=== PATIENT | female | born 1955 | race Caucasian/White ===

== ENCOUNTER 2016-12-08 10:24 | Emergency (ER) | payer BC, OTHER ==
[2016-12-08 10:35] VITALS: BP 111/83
[2016-12-08] MEDS ORDERED: Acetaminophen/HYDROcodone 325-5 MG Tab PO ONE (11:18)
--- NOTE | 2016-12-08 11:24 | EDM.PDOC ---
ED HPI GENERAL MEDICAL PROBLEM - General Chief Complaint: Upper Extremity Injury/Pain Stated Complaint: FELL THINKS SHE BROKE HER COLLARBONE/LT ARM Time Seen by Provider: 12/08/16 10:50 Source of Information: Reports: Patient History Limitations: Reports: No Limitations - History of Present Illness INITIAL COMMENTS - FREE TEXT/NARRATIVE: Patient presents to ER with complaints of left shoulder/clavicle pain. Did slip and fall down her stairs at home. Has currently been dealing with right shoulder concerns due to previous fracture and was "trying to protect that area ". Now having limited range of motion with the left shoulder as well. Has noted an obvious deformity and some bruising. Onset: Today, Sudden Duration: Minutes: Location: Reports: Upper Extremity, Left Quality: Reports: Throbbing Severity: Moderate Worsens with: Reports: Movement Context: Reports: Trauma (fall) Associated Symptoms: Reports: No Other Symptoms Left Clavicle Pain Score (Numeric/FACES): 6 Left Shoulder Pain Score (Numeric/FACES): 6 - Related Data Allergies Allergy/AdvReac Type Severity Reaction Status Date / Time aspirin Allergy Other Verified 12/08/16 10:35 Home Meds: Home Meds Albuterol [Proventil HFA] 6.7 gm INH BID PRN 04/28/16 [History] Albuterol [Proventil Neb Soln] 1.25 mg NEB BID 04/28/16 [History] Budesonide/Formoterol Fumarate [Symbicort 160-4.5 Mcg Inhaler] 1 puff IH ASDIRECTED PRN 04/28/16 [History] Venlafaxine HCl [Venlafaxine HCl] 150 mg PO BID 04/28/16 [History] rOPINIRole HCl [Ropinirole HCl] 3 tab PO DAILY 04/28/16 [History] Past Medical History Respiratory History: Reports: COPD [employer] History: Reports: Endometriosis Musculoskeletal History: Reports: Other (See Below) Other Musculoskeletal History: surgery to RUE after fx Psychiatric History: Reports: Anxiety, Depression - Past Surgical History Female Surgical History: Reports: Hysterectomy Social & Family History - Tobacco Use Smoking Status *Q: Current Every Day Smoker Years of Tobacco use: 42 Packs/Tins Daily: 0.2 - Caffeine Use Caffeine Use: Reports: Coffee - Recreational Drug Use Recreational Drug Use: No Review of Systems - Review of Systems Review Of Systems: ROS reveals no pertinent complaints other than HPI. ED EXAM, GENERAL - Physical Exam Exam: See Below Exam Limited By: No Limitations General Appearance: Alert, WD/WN, Mild Distress Extremities: Arm Pain, Limited Range of Motion, Other (patient noted to have obvious deformity to medial clavicle. Is tender to this area. Mild bruising. Limited range of motion to left shoulder due to pain.) Course - Vital Signs Last Recorded V/S: Last Vital Signs Temp 97 F 12/08/16 10:29 Pulse 70 12/08/16 10:29 Resp 20 12/08/16 10:29 BP 111/83 12/08/16 10:29 Pulse Ox 95 12/08/16 10:29 - Orders/Labs/Meds Orders: Active Orders 24 hr Category Date Time Status Shoulder Comp Lt [CR] Stat Exams 12/08/16 10:36 Taken Meds: Medications Discontinued Medications Generic Name Dose Route Start Last Admin Trade Name Freq PRN Reason Stop Dose Admin Hydrocodone Bitart/Acetaminophen 2 tab 12/08/16 11:18 12/08/16 11:21 [place] 325-5 Mg PO 12/08/16 11:19 2 tab ONETIME ONE Administration - Re-Assessments/Exams Free Text/Narrative Re-Assessment/Exam: 12/08 Xrays reviewed. Does have a nondisplaced clavicle fracture. Sling applied. Departure - Departure Time of Disposition: 11:21 Disposition: Home, Self-Care 01 Condition: Fair Clinical Impression: Fracture of clavicle Qualifiers: Encounter type: initial encounter Fracture type: closed Fracture alignment: nondisplaced Laterality: left - Discharge Information Referrals: Otilio Dias PA-C [Family Provider] - Forms: ED Department Discharge Additional Instructions: 1. Ice to affected area frequently today 2. Sling 3. [place] 5/325 1-2 tabs every 6 hours as needed for pain 4. Follow up in 2 weeks for recheck and xray. Discuss Dexa scan at that time. 5. Contact us with any concerns. - My Orders Last 24 Hours: My Active Orders 12/08/16 10:36 Shoulder Comp Lt [CR] Stat - Assessment/Plan Last 24 Hours: My Active Orders 12/08/16 10:36 Shoulder Comp Lt [CR] Stat
== END 2016-12-08 11:35 | disposition home or self-care (01) ==
LOC: CC.ED 10:24
DX: S42.002A Fracture of unspecified part of left clavicle, initial encounter for closed fracture (principal); J44.9 Chronic obstructive pulmonary disease, unspecified; F41.9 Anxiety disorder, unspecified; F32.9 Major depressive disorder, single episode, unspecified; F17.210 Nicotine dependence, cigarettes, uncomplicated; Z88.8 Allergy status to other drugs, medicaments and biological substances; Z79.899 Other long term (current) drug therapy; W10.9XXA Fall (on) (from) unspecified stairs and steps, initial encounter; Y92.009 Unspecified place in unspecified non-institutional (private) residence as the place of occurrence of the external cause
CPT/HCPCS: 73030; 99283; A9270

== ENCOUNTER 2017-02-21 12:22 | Inpatient (IN) | payer BC ==
[2017-02-21 12:54] LABS: CHLORIDE,CL 100 mEq/L (98-106); SODIUM,NA 135 mEq/L (136-145)
[2017-02-21] MEDS ORDERED: Ibuprofen 200 MG Tab PO PRN (13:53)
[2017-02-21] MEDS ORDERED: Docusate Sodium 100 MG Cap PO PRN (13:53)
[2017-02-21] MEDS ORDERED: Acetaminophen 325 MG Tab PO PRN (13:53)
[2017-02-21] MEDS ORDERED: Temazepam 15 MG Cap PO PRN (13:53)
[2017-02-21] MEDS ORDERED: Lactated Ringers 1,000 ML IV SCH (14:00)
[2017-02-21] MEDS ORDERED: Nicotine 14 MG/24 Hr Patch TRDERM SCH (14:15)
[2017-02-21] MEDS ORDERED: Albuterol 8 GM Inhaler INH PRN (14:20)
[2017-02-21] MEDS ORDERED: Formoterol/Mometasone 200-5 MCG 8.8 GM Inhaler IH PRN (14:20)
[2017-02-21] MEDS ORDERED: rOPINIRole 1 MG Tab PO PRN (14:20)
[2017-02-21] MEDS ORDERED: Acetaminophen 500 MG Tab PO PRN (14:20)
[2017-02-21] MEDS: Levofloxacin/Dextrose 5%-Water 500 MG in Premix Bag 1 BAG IV SCH (14:24)
[2017-02-21] MEDS: methylPREDNISolone Sodium Succinate 125 MG/2 ML SDV IVPUSH SCH ×2 (14:24→22:20)
[2017-02-21] MEDS: Enoxaparin 40 MG/0.4 ML Syringe SUBCUT SCH (14:24)
[2017-02-21] MEDS ORDERED: Iopamidol 755 Mg/ML 100 ML Bottle IVPUSH ONE (15:18)
[2017-02-21] MEDS: Albuterol/Ipratropium 3.0-0.5 MG/3 ML Neb Soln NEB PRN ×2 (16:41→19:48)
[2017-02-21] MEDS: Venlafaxine 37.5 MG Tab PO SCH (19:40)
[2017-02-22] MEDS ORDERED: Acetaminophen/HYDROcodone 325-5 MG Tab PO SCH (08:00)
[2017-02-22] MEDS: Albuterol/Ipratropium 3.0-0.5 MG/3 ML Neb Soln NEB PRN (08:07)
[2017-02-22] MEDS: Venlafaxine 37.5 MG Tab PO SCH ×2 (08:07→19:28)
[2017-02-22] MEDS: Cyanocobalamin (Vitamin B12) 1,000 MCG Tab PO SCH (08:08)
[2017-02-22] MEDS: methylPREDNISolone Sodium Succinate 125 MG/2 ML SDV IVPUSH SCH ×2 (08:09→19:28)
--- NOTE | 2017-02-22 08:59 | PCM.PN ---
- General Info Date of Service: 02/22/17 Admission Dx/Problem (Free Text): RLL Pneumonia Functional Status: Reports: Pain Controlled, Tolerating Diet. Denies: Ambulating - Review of Systems General: Reports: Fever, Fatigue, Malaise. Denies: Weakness HEENT: Reports: No Symptoms Pulmonary: Reports: Shortness of Breath, Cough, Sputum. Denies: Wheezing Cardiovascular: Denies: Chest Pain, Edema, Lightheadedness Gastrointestinal: Denies: Abdominal Pain, Constipation, Diarrhea, Nausea, Vomiting Genitourinary: Reports: No Symptoms Musculoskeletal: Reports: No Symptoms Skin: Reports: No Symptoms Neurological: Reports: No Symptoms - Patient Data Vitals - Most Recent: Last Vital Signs Temp 98.3 F 02/22/17 04:00 Pulse 98 02/22/17 04:00 Resp 16 02/22/17 04:00 BP 110/62 02/22/17 04:00 Pulse Ox 99 02/22/17 04:00 Weight - Most Recent: 113 lb 9.6 oz Lab Results Last 24 Hours: Laboratory Results - last 24 hr 02/21/17 02/21/17 02/21/17 Range/Units 12:34 12:34 12:34 WBC 18.6 H (5.0-10.0) 10^3/uL RBC 4.14 (4.00-5.50) 10^6/uL Hgb 12.1 (12.0-16.0) g/dL Hct 37.6 (37.0-47.0) % MCV 90.8 (82.0-94.0) fL MCH 29.2 (27.0-32.0) pg MCHC 32.2 L (33.0-38.0) g/dL RDW Coeff of Michelle 12.5 (11.0-15.0) % Plt Count 404 H (150-400) 10^3/uL Neut % (Auto) 80.9 (35-85) % Lymph % (Auto) 10.1 (10-55) % [place] % (Auto) 7.8 (0-16) % Eos % (Auto) 1.0 (0-5) % Baso % (Auto) 0.2 (0-3) % Neut # (Auto) 15.07 H (1.80-7.00) 10^3/uL Lymph # (Auto) 1.88 (1.00-4.80) 10^3/uL [place] # (Auto) 1.46 H (0.00-0.80) 10^3/uL Eos # (Auto) 0.19 (0.00-0.45) 10^3/uL Baso # (Auto) 0.04 10^3/uL D-Dimer, Quantitative (0.00-0.50) Sodium 135 L (136-145) mEq/L Potassium 3.5 D (3.5-5.0) mEq/L Chloride 100 (98-106) mEq/L Carbon Dioxide 24 (21-32) mmol/L BUN 10 (7-18) mg/dL Creatinine 0.9 (0.6-1.0) mg/dL Est Cr Clr Drug Dosing TNP Estimated GFR (MDRD) > 60 (>=60) mL/min Glucose 128 H D (75-99) mg/dL Calcium 8.8 (8.4-10.1) mg/dL Total Bilirubin 0.3 (0.0-1.0) mg/dL AST 23 (15-37) U/L ALT 36 (12-78) U/L Alkaline Phosphatase 131 H (46-116) U/L C-Reactive Protein 21.7 H (0.2-0.8) mg/dL Total Protein 7.6 (6.4-8.2) g/dL Albumin 3.2 L (3.4-5.0) g/dL Urine Color Yellow (YELLOW) Urine Appearance Clear (CLEAR) Urine pH 5.5 (4.5-8.0) Ur Specific [place] 1.020 (1.003-1.020) Urine Protein 30 H (NEGATIVE) mg/dL Urine Glucose (UA) Negative (NEGATIVE) mg/dL Urine Ketones Negative (NEGATIVE) mg/dL Urine Occult Blood Small H (NEGATIVE) Urine Nitrite Negative (NEGATIVE) Urine Bilirubin Negative (NEGATIVE) Urine Urobilinogen 0.2 (0.2-1.0) EU/dL Ur Leukocyte Esterase Negative (NEGATIVE) Urine RBC Not seen (0-5) /HPF Urine WBC Not seen (0-5) /HPF Ur Squamous Epith Cells Moderate H (NOT SEEN) /HPF Urine Bacteria Few H (NOT SEEN) /HPF 02/21/17 02/22/17 02/22/17 Range/Units 14:26 05:11 08:13 WBC 18.0 H (5.0-10.0) 10^3/uL RBC 3.93 L (4.00-5.50) 10^6/uL Hgb 11.5 L (12.0-16.0) g/dL Hct 35.5 L (37.0-47.0) % MCV 90.3 (82.0-94.0) fL MCH 29.3 (27.0-32.0) pg MCHC 32.4 L (33.0-38.0) g/dL RDW Coeff of Michelle 12.2 (11.0-15.0) % Plt Count 439 H (150-400) 10^3/uL Neut % (Auto) 88.5 H (35-85) % Lymph % (Auto) 8.2 L (10-55) % [place] % (Auto) 3.2 (0-16) % Eos % (Auto) 0 (0-5) % Baso % (Auto) 0.1 (0-3) % Neut # (Auto) 15.93 H (1.80-7.00) 10^3/uL Lymph # (Auto) 1.47 (1.00-4.80) 10^3/uL [place] # (Auto) 0.57 (0.00-0.80) 10^3/uL Eos # (Auto) 0.00 (0.00-0.45) 10^3/uL Baso # (Auto) 0.01 10^3/uL D-Dimer, Quantitative 1.42 H (0.00-0.50) Sodium (136-145) mEq/L Potassium (3.5-5.0) mEq/L Chloride (98-106) mEq/L Carbon Dioxide 27 (21-32) mmol/L BUN 10 (7-18) mg/dL Creatinine 0.7 (0.6-1.0) mg/dL Est Cr Clr Drug Dosing 65.30 Estimated GFR (MDRD) > 60 (>=60) mL/min Glucose 137 H (75-99) mg/dL Calcium 8.9 (8.4-10.1) mg/dL Total Bilirubin (0.0-1.0) mg/dL AST (15-37) U/L ALT (12-78) U/L Alkaline Phosphatase (46-116) U/L C-Reactive Protein 17.3 H (0.2-0.8) mg/dL Total Protein (6.4-8.2) g/dL Albumin (3.4-5.0) g/dL Urine Color (YELLOW) Urine Appearance (CLEAR) Urine pH (4.5-8.0) Ur Specific [place] (1.003-1.020) Urine Protein (NEGATIVE) mg/dL Urine Glucose (UA) (NEGATIVE) mg/dL Urine Ketones (NEGATIVE) mg/dL Urine Occult Blood (NEGATIVE) Urine Nitrite (NEGATIVE) Urine Bilirubin (NEGATIVE) Urine Urobilinogen (0.2-1.0) EU/dL Ur Leukocyte Esterase (NEGATIVE) Urine RBC (0-5) /HPF Urine WBC (0-5) /HPF Ur Squamous Epith Cells (NOT SEEN) /HPF Urine Bacteria (NOT SEEN) /HPF Matthew Results Last 24 Hours: Microbiology 02/21/17 12:34 Influenza Type A Antigen Screen - Final Nasal, Left NEGATIVE INFLUENZA A VIRUS AG Influenza Type B Antigen Screen - Final NEGATIVE INFLUENZA B VIRUS AG Med Orders - Current: Current Medications Acetaminophen (Tylenol Extra Strength) 1,000 mg PO Q8H PRN PRN Reason: Pain (Mild 1-3)/fever Last Admin: 02/22/17 08:17 Dose: 1,000 mg Hydrocodone Bitart/Acetaminophen ([place] 325-5 Mg) 1 tab PO DAILY [facility] Last Admin: 02/22/17 08:08 Dose: Not Given Albuterol (Ventolin Hfa) 0 gm INH Q4H PRN PRN Reason: Shortness of Breath Albuterol/Ipratropium (Duoneb 3.0-0.5 Mg/3 Ml) 3 ml NEB QID [facility] Cyanocobalamin (Vitamin B12) 1,000 mcg PO DAILY [facility] Last Admin: 02/22/17 08:08 Dose: 1,000 mcg Docusate Sodium (Colace) 100 mg PO BID PRN PRN Reason: Constipation Enoxaparin Sodium (Lovenox) 40 mg SUBCUT Q24H [facility] Last Admin: 02/21/17 14:24 Dose: 40 mg Levofloxacin/Dextrose 500 mg/ (Premix) 100 mls @ 100 mls/hr IV Q24H [facility] Last Admin: 02/21/17 14:24 Dose: 100 mls/hr Methylprednisolone Sodium Succinate (Solu-Medrol) 62.5 mg IVPUSH Q12H [facility] Last Admin: 02/22/17 08:09 Dose: 62.5 mg Mometasone Furoate/Formoterol Fumar (Dulera 200-5 Mcg) 1 puff IH BID PRN PRN Reason: Shortness of Breath Last Admin: 02/21/17 19:43 Dose: 1 puff Ropinirole HCl (Requip) 1 - 3 mg PO TID PRN PRN Reason: Spasms Last Admin: 02/21/17 14:37 Dose: 2 mg Temazepam (Restoril) 15 mg PO BEDTIME PRN PRN Reason: Sleep Venlafaxine HCl (Effexor) 112.5 mg PO BID [facility] Last Admin: 02/22/17 08:07 Dose: 112.5 mg Discontinued Medications Acetaminophen (Tylenol) 650 mg PO Q4H PRN PRN Reason: Pain (Mild 1-3)/fever Albuterol/Ipratropium (Duoneb 3.0-0.5 Mg/3 Ml) 3 ml NEB Q4H PRN PRN Reason: Shortness Of Breath/wheezing Last Admin: 02/22/17 08:07 Dose: 3 ml Lactated Ringer's (Ringers, Lactated) 1,000 mls @ 100 mls/hr IV ASDIRECTED [facility] Iopamidol (Isovue-370 (76%)) 100 ml IVPUSH ONETIME ONE Stop: 02/21/17 15:19 Last Admin: 02/21/17 19:10 Dose: Not Given Methylprednisolone Sodium Succinate (Solu-Medrol) 62.5 mg IVPUSH 1400,2300 [facility] Stop: 02/21/17 23:59 Last Admin: 02/21/17 22:20 Dose: 62.5 mg Nicotine (Habitrol) 14 mg TRDERM DAILY [facility] - Exam General: Alert, Oriented HEENT: Mucous Membr. Moist/[place] Neck: Supple Lungs: Decreased Breath Sounds, Rales (RLL) Cardiovascular: Regular Rate, Regular Rhythm GI/Abdominal Exam: Normal Bowel Sounds, Soft, Non-Tender Extremities: Normal Inspection, No Pedal Edema Skin: Warm, Dry Neurological: No New Focal Deficit - Problem List & Annotations (1) Pneumonia SNOMED Code(s): 282195415 Code(s): J18.9 - PNEUMONIA, UNSPECIFIED ORGANISM Status: Acute Priority: High Current Visit: Yes Qualifiers: Pneumonia type: due to unspecified organism Laterality: right Lung location: lower lobe of lung Qualified Code(s): J18.1 - Lobar pneumonia, unspecified organism - Problem List Review Problem List Initiated/Reviewed/Updated: Yes - My Orders Last 24 Hours: My Active Orders 02/22/17 12:00 Albuterol/Ipratropium [DuoNeb 3.0-0.5 MG/3 ML] 3 ml NEB QID - Assessment Assessment:: RLL Pneumonia - Plan Plan:: Patient states feels somewhat better today. Chest still feels tight but not to the extreme of yesterday. She did expectorate a sputum last night so awaiting those results. Low grade fever last evening. Good appetite. WBC today 18. CRP 17.3, both slightly improved from yesterday. CT did confirm a RLL pneumonia , no PE. Will continue with IV Levaquin. DuoNebs QID scheduled and PRN. Await sputum culture. Encourage ambulation when able.
[2017-02-22 09:13] LABS: CHLORIDE,CL 103 mEq/L (98-106); SODIUM,NA 138 mEq/L (136-145)
[2017-02-22] MEDS: Enoxaparin 40 MG/0.4 ML Syringe SUBCUT SCH (12:07)
[2017-02-22] MEDS: Albuterol/Ipratropium 3.0-0.5 MG/3 ML Neb Soln NEB SCH ×3 (12:08→19:28)
[2017-02-22] MEDS: Levofloxacin/Dextrose 5%-Water 500 MG in Premix Bag 1 BAG IV SCH (12:08)
[2017-02-23 07:22] LABS: CHLORIDE,CL 105 mEq/L (98-106); SODIUM,NA 140 mEq/L (136-145)
[2017-02-23] MEDS: Venlafaxine 37.5 MG Tab PO SCH ×2 (07:38→19:24)
[2017-02-23] MEDS: Albuterol/Ipratropium 3.0-0.5 MG/3 ML Neb Soln NEB SCH ×4 (07:38→20:21)
[2017-02-23] MEDS: methylPREDNISolone Sodium Succinate 125 MG/2 ML SDV IVPUSH SCH ×2 (07:38→19:24)
[2017-02-23] MEDS: Cyanocobalamin (Vitamin B12) 1,000 MCG Tab PO SCH (07:38)
[2017-02-23] MEDS: Levofloxacin/Dextrose 5%-Water 500 MG in Premix Bag 1 BAG IV SCH (12:21)
[2017-02-23] MEDS: Enoxaparin 40 MG/0.4 ML Syringe SUBCUT SCH (12:21)
--- NOTE | 2017-02-23 13:30 | PCM.PN ---
- General Info Date of Service: 02/23/17 Admission Dx/Problem (Free Text): RLL Pneumonia Functional Status: Reports: Pain Controlled, Tolerating Diet, Ambulating - Review of Systems General: Denies: Fever, Weakness, Fatigue HEENT: Denies: Ear Pain, Sinus Congestion, Sore Throat Pulmonary: Reports: Shortness of Breath, Cough, Sputum, Wheezing Cardiovascular: Denies: Chest Pain, Edema, Lightheadedness Gastrointestinal: Denies: Abdominal Pain, Nausea, Vomiting Genitourinary: Reports: No Symptoms Musculoskeletal: Reports: No Symptoms Skin: Reports: No Symptoms Neurological: Reports: No Symptoms - Patient Data Vitals - Most Recent: Last Vital Signs Temp 97.8 F 02/23/17 08:00 Pulse 86 02/23/17 08:00 Resp 20 02/23/17 08:00 BP 109/63 02/23/17 08:00 Pulse Ox 96 02/23/17 08:00 Weight - Most Recent: 113 lb 9.6 oz Lab Results Last 24 Hours: Laboratory Results - last 24 hr 02/23/17 02/23/17 Range/Units 06:45 06:45 WBC 23.2 H* (5.0-10.0) 10^3/uL RBC 3.72 L (4.00-5.50) 10^6/uL Hgb 11.0 L (12.0-16.0) g/dL Hct 33.6 L (37.0-47.0) % MCV 90.3 (82.0-94.0) fL MCH 29.6 (27.0-32.0) pg MCHC 32.7 L (33.0-38.0) g/dL RDW Coeff of Michelle 12.5 (11.0-15.0) % Plt Count 486 H (150-400) 10^3/uL Add Manual Diff Yes Neutrophils % (Manual) 84 (35-85) % Lymphocytes % (Manual) 12 L (21-55) % Monocytes % (Manual) 4 (2-12) % Absolute Neutrophils 19.49 H (1.80-7.00) 10^3/uL Lymphocytes # (Manual) 2.78 (1.00-4.80) 10^3/uL Monocytes # (Manual) 0.93 H (0.00-0.80) 10^3/uL Sodium 140 (136-145) mEq/L Potassium 3.7 (3.5-5.0) mEq/L Chloride 105 (98-106) mEq/L Carbon Dioxide 26 (21-32) mmol/L BUN 11 (7-18) mg/dL Creatinine 0.8 (0.6-1.0) mg/dL Est Cr Clr Drug Dosing 57.14 mL/min Estimated GFR (MDRD) > 60 (>=60) mL/min Glucose 115 H (75-99) mg/dL Calcium 8.8 (8.4-10.1) mg/dL C-Reactive Protein 6.8 H (0.2-0.8) mg/dL Matthew Results Last 24 Hours: Microbiology 02/21/17 19:00 Gram Stain - Final Sputum - Expectorated Sputum Culture - Preliminary 02/21/17 14:26 Aerobic Blood Culture - Preliminary Blood NO GROWTH AFTER 1 DAY Anaerobic Blood Culture - Preliminary NO GROWTH AFTER 1 DAY 02/21/17 14:11 Aerobic Blood Culture - Preliminary Blood NO GROWTH AFTER 1 DAY Anaerobic Blood Culture - Preliminary NO GROWTH AFTER 1 DAY Med Orders - Current: Current Medications Acetaminophen (Tylenol Extra Strength) 1,000 mg PO Q8H PRN PRN Reason: Pain (Mild 1-3)/fever Last Admin: 02/22/17 08:17 Dose: 1,000 mg Albuterol (Ventolin Hfa) 0 gm INH Q4H PRN PRN Reason: Shortness of Breath Albuterol/Ipratropium (Duoneb 3.0-0.5 Mg/3 Ml) 3 ml NEB QID [facility] Last Admin: 02/23/17 12:21 Dose: 3 ml Cyanocobalamin (Vitamin B12) 1,000 mcg PO DAILY [facility] Last Admin: 02/23/17 07:38 Dose: 1,000 mcg Docusate Sodium (Colace) 100 mg PO BID PRN PRN Reason: Constipation Enoxaparin Sodium (Lovenox) 40 mg SUBCUT Q24H [facility] Last Admin: 02/23/17 12:21 Dose: 40 mg Levofloxacin/Dextrose 500 mg/ (Premix) 100 mls @ 100 mls/hr IV Q24H [facility] Last Admin: 02/23/17 12:21 Dose: 100 mls/hr Methylprednisolone Sodium Succinate (Solu-Medrol) 62.5 mg IVPUSH Q12H [facility] Last Admin: 02/23/17 07:38 Dose: 62.5 mg Mometasone Furoate/Formoterol Fumar (Dulera 200-5 Mcg) 1 puff IH BID PRN PRN Reason: Shortness of Breath Last Admin: 02/21/17 19:43 Dose: 1 puff Ropinirole HCl (Requip) 1 - 3 mg PO TID PRN PRN Reason: Spasms Last Admin: 02/21/17 14:37 Dose: 2 mg Temazepam (Restoril) 15 mg PO BEDTIME PRN PRN Reason: Sleep Venlafaxine HCl (Effexor) 112.5 mg PO BID [facility] Last Admin: 02/23/17 07:38 Dose: 112.5 mg Discontinued Medications Acetaminophen (Tylenol) 650 mg PO Q4H PRN PRN Reason: Pain (Mild 1-3)/fever Hydrocodone Bitart/Acetaminophen ([place] 325-5 Mg) 1 tab PO DAILY [facility] Last Admin: 02/22/17 08:08 Dose: Not Given Albuterol/Ipratropium (Duoneb 3.0-0.5 Mg/3 Ml) 3 ml NEB Q4H PRN PRN Reason: Shortness Of Breath/wheezing Last Admin: 02/22/17 08:07 Dose: 3 ml Lactated Ringer's (Ringers, Lactated) 1,000 mls @ 100 mls/hr IV ASDIRECTED [facility] Iopamidol (Isovue-370 (76%)) 100 ml IVPUSH ONETIME ONE Stop: 02/21/17 15:19 Last Admin: 02/21/17 19:10 Dose: Not Given Methylprednisolone Sodium Succinate (Solu-Medrol) 62.5 mg IVPUSH 1400,2300 [facility] Stop: 02/21/17 23:59 Last Admin: 02/21/17 22:20 Dose: 62.5 mg Nicotine (Habitrol) 14 mg TRDERM DAILY [facility] - Exam General: Alert, Oriented HEENT: Mucous Membr. Moist/[place] Neck: Supple Lungs: Decreased Breath Sounds, Wheezing Cardiovascular: Regular Rate, Regular Rhythm GI/Abdominal Exam: Normal Bowel Sounds, Soft, Non-Tender Back Exam: Normal Inspection Extremities: Normal Inspection, No Pedal Edema Skin: Warm, Dry Neurological: No New Focal Deficit - Problem List & Annotations (1) Pneumonia SNOMED Code(s): 067044943 Code(s): J18.9 - PNEUMONIA, UNSPECIFIED ORGANISM Status: Acute Priority: High Current Visit: Yes Qualifiers: Pneumonia type: due to unspecified organism Laterality: right Lung location: lower lobe of lung Qualified Code(s): J18.1 - Lobar pneumonia, unspecified organism - Problem List Review Problem List Initiated/Reviewed/Updated: Yes - Assessment Assessment:: RLL Pneumonia - Plan Plan:: Patient states feels somewhat better today. Chest still feels tight but not to the extreme of yesterday. She did expectorate a sputum last night so awaiting those results. Low grade fever last evening. Good appetite. WBC today 18. CRP 17.3, both slightly improved from yesterday. CT did confirm a RLL pneumonia , no PE. Will continue with IV Levaquin. DuoNebs QID scheduled and PRN. Await sputum culture. Encourage ambulation when able. 02-23-2017 Patient is up and ambulating in halls. Admits that chest still feels tight in her chest, seems tighter than yesterday. Still has very harsh, wet cough. Afebrile. WBC is up today most likely from steroids, CRP improved. Continue Levaquin, duonebs. Discharge home tomorrow if continues to improve.
[2017-02-24] MEDS: Albuterol/Ipratropium 3.0-0.5 MG/3 ML Neb Soln NEB SCH ×2 (09:27→12:24)
[2017-02-24] MEDS: Venlafaxine 37.5 MG Tab PO SCH (09:28)
[2017-02-24] MEDS: Cyanocobalamin (Vitamin B12) 1,000 MCG Tab PO SCH (09:28)
[2017-02-24] MEDS: methylPREDNISolone Sodium Succinate 125 MG/2 ML SDV IVPUSH SCH (09:28)
[2017-02-24 11:40] VITALS: BP 103/67
[2017-02-24] MEDS: Levofloxacin/Dextrose 5%-Water 500 MG in Premix Bag 1 BAG IV SCH (12:23)
[2017-02-24] MEDS: Enoxaparin 40 MG/0.4 ML Syringe SUBCUT SCH (12:24)
--- NOTE | 2017-02-28 07:56 | DISCH ---
FINAL DIAGNOSIS: Left lower lobe pneumonia. HISTORY OF PRESENT ILLNESS: Please refer to history and physical. Initially, she presented to the clinic on the with a cold-like symptoms. She did end up having some laboratory work done with an elevated white blood count and a CRP level. We did do a CTA of the chest secondary to elevated D-dimer and alkaline phosphatase, which was negative. They did confirm left lower lobe pneumonia/infiltrate. LABORATORY DATA: White blood count was 18,600 on admission. It is currently at 15,300. CRP was 21.7 down to 6.8, presently. Her D-dimer again was elevated at 1.42 with a rule out of PE via CTA. Chest x-ray did show a left lower lobe pneumonia. HOSPITAL COURSE: Rachell has been progressing appropriately. She states she feels a lot better today than she did upon admission. She has been up moving around, walk in the hallways. She states that if she does walk for quite a while and talking, she will get a little bit shortness of breath, but again it is much improved. She does not feel that she has been running any fevers. Vital signs have confirmed that she has been afebrile. She has no concerns presently. She does feel that she is ready to go home at this point in time. DISCHARGE MEDICATIONS: We will resume all home medications. We will also put her on Levaquin 500 mg daily for 7 days along with prednisone 20 mg a day for 5 days. She is to continue with nebulizer treatments and inhaler. FOLLOWUP: We will have a followup appointment on next Tuesday in [facility] with some laboratory workup. DISCHARGE INSTRUCTIONS: She can resume usual diet and activity as tolerated. If she has any concerns, she verbalized that she will definitely let us know. We will discharge her this morning. ADILENE/AZUCENA /[id number]
== END 2017-02-24 14:30 | disposition home or self-care (01) | DRG 139 ==
LOC: CC.FCMC 12:22 → CC.MS 12:22 → UNDOADMIN 13:41 → CC.MS 13:41
PROVIDERS: ADMIT Physician Assistant Medical; ATTEND Family Medicine
DX: J18.9 Pneumonia, unspecified organism (principal); D64.9 Anemia, unspecified; J45.909 Unspecified asthma, uncomplicated; F32.9 Major depressive disorder, single episode, unspecified; G89.29 Other chronic pain; M25.519 Pain in unspecified shoulder; G25.81 Restless legs syndrome; Z88.8 Allergy status to other drugs, medicaments and biological substances; Z79.899 Other long term (current) drug therapy; F10.10 Alcohol abuse, uncomplicated; F17.200 Nicotine dependence, unspecified, uncomplicated
CPT/HCPCS: 36415; 71020; 71275; 80048; 80053; 81001; 85025; 85379; 86140; 87040; 87070; 87205; 87804; 94640; A9270-GY; J1650; J1956; J2930; Q9967

== ENCOUNTER 2018-07-21 13:19 | Inpatient (IN) | payer OTHER ==
[2018-07-21 13:51] LABS: CHLORIDE,CL 99 mEq/L (98-106); SODIUM,NA 136 mEq/L (136-145)
[2018-07-21] MEDS ORDERED: Sodium Chloride 0.9% 10 ML Syringe FLUSH PRN (14:44)
[2018-07-21] MEDS ORDERED: Albuterol/Ipratropium 3.0-0.5 MG/3 ML Neb Soln NEB PRN (14:44)
[2018-07-21] MEDS ORDERED: Iopamidol 755 Mg/ML 100 ML Bottle IVPUSH ONE (14:56)
[2018-07-21] MEDS ORDERED: Levofloxacin/Dextrose 5%-Water 500 MG in Premix Bag 1 BAG IV ONE (15:00)
[2018-07-21] MEDS: Enoxaparin 40 MG/0.4 ML Syringe SUBCUT SCH (15:19)
[2018-07-21] MEDS ORDERED: rOPINIRole 1 MG Tab PO ONE (19:59)
[2018-07-21] MEDS ORDERED: Formoterol/Mometasone 200-5 MCG 8.8 GM Inhaler IH PRN (20:58)
[2018-07-21] MEDS: rOPINIRole 1 MG Tab PO PRN (22:11)
[2018-07-21] MEDS: Acetaminophen 325 MG Tab PO PRN (22:12)
[2018-07-22 07:55] LABS: CHLORIDE,CL 106 mEq/L (98-106); SODIUM,NA 142 mEq/L (136-145)
[2018-07-22] MEDS: Venlafaxine 37.5 MG Tab PO SCH (08:46)
[2018-07-22] MEDS: Albuterol/Ipratropium 3.0-0.5 MG/3 ML Neb Soln NEB SCH ×3 (12:21→20:02)
[2018-07-22] MEDS: methylPREDNISolone Sodium Succinate 125 MG/2 ML SDV IVPUSH SCH ×2 (12:21→23:29)
[2018-07-22] MEDS: Nicotine 7 MG/24 Hr Patch TRDERM SCH (12:21)
--- NOTE | 2018-07-22 12:48 | PCM.PN ---
- General Info Date of Service: 07/22/18 Admission Dx/Problem (Free Text): COPD with acute lower respiratory infection Functional Status: Reports: Pain Controlled, Tolerating Diet, Ambulating - Review of Systems General: Reports: Fever, Weakness, Fatigue, Malaise HEENT: Reports: Sinus Congestion, Rhinitis Pulmonary: Reports: Shortness of Breath, Pleuritic Chest Pain, Cough, Wheezing. Denies: Sputum Cardiovascular: Denies: Chest Pain, Edema, Lightheadedness Gastrointestinal: Denies: Abdominal Pain, Nausea, Vomiting Genitourinary: Reports: No Symptoms Musculoskeletal: Reports: No Symptoms Skin: Reports: No Symptoms Neurological: Reports: No Symptoms - Patient Data Vitals - Most Recent: Last Vital Signs Temp 97.4 F 07/22/18 08:00 Pulse 101 H 07/22/18 08:00 Resp 20 07/22/18 08:00 BP 118/62 07/22/18 08:00 Pulse Ox 95 07/22/18 08:00 Weight - Most Recent: 111 lb 8 oz Lab Results Last 24 Hours: Laboratory Results - last 24 hr 07/21/18 07/21/18 07/21/18 Range/Units 13:28 13:28 13:28 WBC 20.1 H* (5.0-10.0) 10^3/uL RBC 4.49 (4.00-5.50) 10^6/uL Hgb 13.6 (12.0-16.0) g/dL Hct 40.8 (37.0-47.0) % MCV 90.9 (82.0-94.0) fL MCH 30.3 (27.0-32.0) pg MCHC 33.3 (33.0-38.0) g/dL RDW Coeff of Michelle 12.5 (11.0-15.0) % Plt Count 342 (150-400) 10^3/uL Neut % (Auto) 78.4 (35-85) % Lymph % (Auto) 13.7 (10-55) % [place] % (Auto) 6.7 (0-16) % Eos % (Auto) 1.0 (0-5) % Baso % (Auto) 0.2 (0-3) % Neut # (Auto) 15.73 H (1.80-7.00) 10^3/uL Lymph # (Auto) 2.75 (1.00-4.80) 10^3/uL [place] # (Auto) 1.34 H (0.00-0.80) 10^3/uL Eos # (Auto) 0.21 (0.00-0.45) 10^3/uL Baso # (Auto) 0.04 10^3/uL D-Dimer, Quantitative 0.58 H (0.00-0.50) Sodium 136 (136-145) mEq/L Potassium 3.7 (3.5-5.0) mEq/L Chloride 99 (98-106) mEq/L Carbon Dioxide 27 (21-32) mmol/L BUN 9 (7-18) mg/dL Creatinine 0.9 (0.6-1.0) mg/dL Est Cr Clr Drug Dosing TNP Estimated GFR (MDRD) > 60 (>=60) mL/min Glucose 95 (75-99) mg/dL Calcium 9.5 (8.4-10.1) mg/dL Creatine Kinase 111 (21-215) U/L Troponin I < 0.017 (0.00-0.06) ng/mL C-Reactive Protein 12.1 H (0.2-0.8) mg/dL 07/22/18 07/22/18 Range/Units 05:11 07:30 WBC 9.8 (5.0-10.0) 10^3/uL RBC 4.29 (4.00-5.50) 10^6/uL Hgb 13.0 (12.0-16.0) g/dL Hct 39.6 (37.0-47.0) % MCV 92.3 (82.0-94.0) fL MCH 30.3 (27.0-32.0) pg MCHC 32.8 L (33.0-38.0) g/dL RDW Coeff of Michelle 12.5 (11.0-15.0) % Plt Count 352 (150-400) 10^3/uL Neut % (Auto) 57.2 (35-85) % Lymph % (Auto) 29.9 (10-55) % [place] % (Auto) 8.4 (0-16) % Eos % (Auto) 4.0 (0-5) % Baso % (Auto) 0.5 (0-3) % Neut # (Auto) 5.62 (1.80-7.00) 10^3/uL Lymph # (Auto) 2.94 (1.00-4.80) 10^3/uL [place] # (Auto) 0.82 H (0.00-0.80) 10^3/uL Eos # (Auto) 0.39 (0.00-0.45) 10^3/uL Baso # (Auto) 0.05 10^3/uL D-Dimer, Quantitative (0.00-0.50) Sodium 142 (136-145) mEq/L Potassium 4.6 D (3.5-5.0) mEq/L Chloride 106 (98-106) mEq/L Carbon Dioxide 29 (21-32) mmol/L BUN 8 (7-18) mg/dL Creatinine 0.9 (0.6-1.0) mg/dL Est Cr Clr Drug Dosing 50.16 Estimated GFR (MDRD) > 60 (>=60) mL/min Glucose 99 (75-99) mg/dL Calcium 9.0 (8.4-10.1) mg/dL Creatine Kinase (21-215) U/L Troponin I (0.00-0.06) ng/mL C-Reactive Protein 8.1 H (0.2-0.8) mg/dL Matthew Results Last 24 Hours: Microbiology 07/21/18 13:28 Influenza Type A Antigen Screen - Final Nasopharyngeal Swab NEGATIVE INFLUENZA A VIRUS AG Influenza Type B Antigen Screen - Final NEGATIVE INFLUENZA B VIRUS AG Med Orders - Current: Current Medications Acetaminophen (Tylenol) 650 mg PO Q4H PRN PRN Reason: Pain (Mild 1-3)/fever Last Admin: 07/21/18 22:12 Dose: 650 mg Albuterol/Ipratropium (Duoneb 3.0-0.5 Mg/3 Ml) 3 ml NEB Q4H PRN PRN Reason: Shortness Of Breath/wheezing Last Admin: 07/22/18 08:39 Dose: 3 ml Albuterol/Ipratropium (Duoneb 3.0-0.5 Mg/3 Ml) 3 ml NEB QIDRT [facility] Last Admin: 07/22/18 12:21 Dose: 3 ml Enoxaparin Sodium (Lovenox) 40 mg SUBCUT Q24H [facility] Last Admin: 07/21/18 15:19 Dose: 40 mg Levofloxacin/Dextrose 250 mg/ (Premix) 50 mls @ 50 mls/hr IV DAILY@1600 [facility] Methylprednisolone Sodium Succinate (Solu-Medrol) 62.5 mg IVPUSH Q12H [facility] Last Admin: 07/22/18 12:21 Dose: 62.5 mg Mometasone Furoate/Formoterol Fumar (Dulera 200-5 Mcg) 1 puff IH DAILY PRN PRN Reason: Shortness of Breath Last Admin: 07/22/18 08:47 Dose: 1 puff Nicotine (Habitrol) 7 mg TRDERM DAILY [facility] Last Admin: 07/22/18 12:21 Dose: 7 mg Ropinirole HCl (Requip) 1 - 3 mg PO TID PRN PRN Reason: Spasms Last Admin: 07/21/18 22:11 Dose: 3 mg Sodium Chloride (Saline Flush) 10 ml FLUSH ASDIRECTED PRN PRN Reason: Keep Vein Open Venlafaxine HCl (Effexor) 225 mg PO DAILY [facility] Last Admin: 07/22/18 08:46 Dose: 225 mg Discontinued Medications Levofloxacin/Dextrose 500 mg/ (Premix) 100 mls @ 100 mls/hr IV ONETIME ONE Stop: 07/21/18 15:59 Last Admin: 07/21/18 15:20 Dose: 100 mls/hr Iopamidol (Isovue-370 (76%)) 100 ml IVPUSH ONETIME ONE Stop: 07/21/18 14:57 Last Admin: 07/21/18 16:00 Dose: 100 ml Ropinirole HCl (Requip) 3 mg PO ONETIME ONE Stop: 07/21/18 20:00 Last Admin: 07/21/18 21:15 Dose: Not Given - Exam General: Alert, Oriented HEENT: Mucous Membr. Moist/[place] Neck: Supple Lungs: Decreased Breath Sounds, Wheezing Cardiovascular: Regular Rate, Regular Rhythm GI/Abdominal Exam: Normal Bowel Sounds, Soft, Non-Tender Extremities: Normal Inspection, No Pedal Edema Skin: Warm, Dry Neurological: No New Focal Deficit - Problem List & Annotations (1) COPD exacerbation SNOMED Code(s): 303906495 Code(s): J44.1 - CHRONIC OBSTRUCTIVE PULMONARY DISEASE W (ACUTE) EXACERBATION Status: Acute Priority: High Current Visit: Yes (2) Pneumonia SNOMED Code(s): 889486909 Code(s): J18.9 - PNEUMONIA, UNSPECIFIED ORGANISM Status: Acute Priority: High Current Visit: Yes Qualifiers: Pneumonia type: due to other aerobic Gram-negative bacteria Laterality: right Lung location: lower lobe of lung Qualified Code(s): J15.6 - Pneumonia due to other Gram-negative bacteria - Problem List Review Problem List Initiated/Reviewed/Updated: Yes - My Orders Last 24 Hours: My Active Orders 07/21/18 20:58 Mometasone/Formoterol [Dulera 200-5 MCG] 1 puff IH DAILY PRN rOPINIRole [Requip] 1 - 3 mg PO TID PRN 07/22/18 08:00 Venlafaxine [Effexor] 225 mg PO DAILY 07/22/18 11:41 RT Aerosol Therapy [RC] ASDIRECTED 07/22/18 11:45 Nicotine [Habitrol] 7 mg TRDERM DAILY methylPREDNISolone Sod Succ [Solu-MEDROL] 62.5 mg IVPUSH Q12H 07/22/18 12:00 Albuterol/Ipratropium [DuoNeb 3.0-0.5 MG/3 ML] 3 ml NEB QIDRT - Assessment Assessment:: RLL pneumonia due to suspected gram negative bacteria COPD Exacerbation - Plan Plan:: Patient continues to feel short of breath with exertion but admits much improved since admit. Oxygen sats remain 95% on room air. Is coughing yet, nonproductive. Low grade temps. Had CT scan done last evening, no PE but noted infiltrate in RLL. WBC improved today to 9.8, CRP improved to 8.1. BMP normal. Does continue to have wheezing in the right base with fine crackles. Will start IV Solu Medrol. Make nebs scheduled QID as she does see relief of SOB with these. Ambulate as able. Nicotine patch today. Repeat labs in am.
[2018-07-22] MEDS: Enoxaparin 40 MG/0.4 ML Syringe SUBCUT SCH (16:15)
[2018-07-22] MEDS: Levofloxacin/Dextrose 5%-Water 250 MG in Premix Bag 1 BAG IV SCH (16:15)
[2018-07-22] MEDS: rOPINIRole 1 MG Tab PO PRN (22:30)
[2018-07-23] MEDS: Nicotine 7 MG/24 Hr Patch TRDERM SCH (07:38)
[2018-07-23] MEDS: Albuterol/Ipratropium 3.0-0.5 MG/3 ML Neb Soln NEB SCH ×4 (07:38→19:59)
[2018-07-23] MEDS: Venlafaxine 37.5 MG Tab PO SCH (07:39)
[2018-07-23] MEDS: Acetaminophen 325 MG Tab PO PRN ×2 (07:45→22:29)
[2018-07-23 07:56] LABS: CHLORIDE,CL 106 mEq/L (98-106); SODIUM,NA 141 mEq/L (136-145)
[2018-07-23] MEDS: methylPREDNISolone Sodium Succinate 125 MG/2 ML SDV IVPUSH SCH ×2 (12:05→22:58)
[2018-07-23] MEDS: Enoxaparin 40 MG/0.4 ML Syringe SUBCUT SCH (16:57)
[2018-07-23] MEDS: Levofloxacin/Dextrose 5%-Water 250 MG in Premix Bag 1 BAG IV SCH (17:01)
--- NOTE | 2018-07-23 17:30 | PCM.PN ---
- General Info Date of Service: 07/23/18 Admission Dx/Problem (Free Text): COPD with acute lower respiratory infection Functional Status: Reports: Pain Controlled, Tolerating Diet, Ambulating - Review of Systems General: Denies: Fever, Weakness, Fatigue HEENT: Reports: Post Nasal Drip, Rhinitis Pulmonary: Reports: Shortness of Breath, Cough, Wheezing Cardiovascular: Denies: Chest Pain, Edema, Lightheadedness Gastrointestinal: Denies: Abdominal Pain, Nausea, Vomiting Genitourinary: Reports: No Symptoms Musculoskeletal: Reports: No Symptoms Skin: Reports: No Symptoms Neurological: Reports: No Symptoms - Patient Data Vitals - Most Recent: Last Vital Signs Temp 98.1 F 07/23/18 12:00 Pulse 78 07/23/18 12:00 Resp 20 07/23/18 12:00 BP 145/76 H 07/23/18 12:00 Pulse Ox 95 07/23/18 12:00 Weight - Most Recent: 111 lb 8 oz Lab Results Last 24 Hours: Laboratory Results - last 24 hr 07/23/18 07/23/18 Range/Units 05:11 05:11 WBC 14.8 H (5.0-10.0) 10^3/uL RBC 4.20 (4.00-5.50) 10^6/uL Hgb 12.6 (12.0-16.0) g/dL Hct 38.4 (37.0-47.0) % MCV 91.4 (82.0-94.0) fL MCH 30.0 (27.0-32.0) pg MCHC 32.8 L (33.0-38.0) g/dL RDW Coeff of Michelle 12.3 (11.0-15.0) % Plt Count 375 (150-400) 10^3/uL Neut % (Auto) 88.6 H (35-85) % Lymph % (Auto) 9.1 L (10-55) % [place] % (Auto) 2.2 (0-16) % Eos % (Auto) 0 (0-5) % Baso % (Auto) 0.1 (0-3) % Neut # (Auto) 13.10 H (1.80-7.00) 10^3/uL Lymph # (Auto) 1.34 (1.00-4.80) 10^3/uL [place] # (Auto) 0.32 (0.00-0.80) 10^3/uL Eos # (Auto) 0.00 (0.00-0.45) 10^3/uL Baso # (Auto) 0.02 10^3/uL Sodium 141 (136-145) mEq/L Potassium 4.3 (3.5-5.0) mEq/L Chloride 106 (98-106) mEq/L Carbon Dioxide 27 (21-32) mmol/L BUN 8 (7-18) mg/dL Creatinine 0.9 (0.6-1.0) mg/dL Est Cr Clr Drug Dosing 50.16 mL/min Estimated GFR (MDRD) > 60 (>=60) mL/min Glucose 134 H D (75-99) mg/dL Calcium 9.1 (8.4-10.1) mg/dL C-Reactive Protein 3.9 H (0.2-0.8) mg/dL Med Orders - Current: Current Medications Acetaminophen (Tylenol) 650 mg PO Q4H PRN PRN Reason: Pain (Mild 1-3)/fever Last Admin: 07/23/18 07:45 Dose: 650 mg Albuterol/Ipratropium (Duoneb 3.0-0.5 Mg/3 Ml) 3 ml NEB Q4H PRN PRN Reason: Shortness Of Breath/wheezing Last Admin: 07/22/18 08:39 Dose: 3 ml Albuterol/Ipratropium (Duoneb 3.0-0.5 Mg/3 Ml) 3 ml NEB QIDRT [facility] Last Admin: 07/23/18 16:57 Dose: 3 ml Enoxaparin Sodium (Lovenox) 40 mg SUBCUT Q24H [facility] Last Admin: 07/23/18 16:57 Dose: 40 mg Levofloxacin/Dextrose 250 mg/ (Premix) 50 mls @ 50 mls/hr IV DAILY@1600 [facility] Last Admin: 07/23/18 17:01 Dose: 50 mls/hr Methylprednisolone Sodium Succinate (Solu-Medrol) 62.5 mg IVPUSH Q12H [facility] Last Admin: 07/23/18 12:05 Dose: 62.5 mg Mometasone Furoate/Formoterol Fumar (Dulera 200-5 Mcg) 1 puff IH DAILY PRN PRN Reason: Shortness of Breath Last Admin: 07/22/18 08:47 Dose: 1 puff Nicotine (Habitrol) 7 mg TRDERM DAILY [facility] Last Admin: 07/23/18 07:38 Dose: 7 mg Ropinirole HCl (Requip) 1 - 3 mg PO TID PRN PRN Reason: Spasms Last Admin: 07/22/18 22:30 Dose: 3 mg Sodium Chloride (Saline Flush) 10 ml FLUSH ASDIRECTED PRN PRN Reason: Keep Vein Open Venlafaxine HCl (Effexor) 225 mg PO DAILY [facility] Last Admin: 07/23/18 07:39 Dose: 225 mg Discontinued Medications Levofloxacin/Dextrose 500 mg/ (Premix) 100 mls @ 100 mls/hr IV ONETIME ONE Stop: 07/21/18 15:59 Last Admin: 07/21/18 15:20 Dose: 100 mls/hr Iopamidol (Isovue-370 (76%)) 100 ml IVPUSH ONETIME ONE Stop: 07/21/18 14:57 Last Admin: 07/21/18 16:00 Dose: 100 ml Ropinirole HCl (Requip) 3 mg PO ONETIME ONE Stop: 07/21/18 20:00 Last Admin: 07/21/18 21:15 Dose: Not Given - Exam General: Alert, Oriented HEENT: Mucous Membr. Moist/[place] Neck: Supple Lungs: Decreased Breath Sounds, Wheezing Cardiovascular: Regular Rate, Regular Rhythm GI/Abdominal Exam: Normal Bowel Sounds, Soft, Non-Tender Extremities: Normal Inspection, No Pedal Edema Skin: Warm, Dry Neurological: No New Focal Deficit - Problem List & Annotations (1) COPD exacerbation SNOMED Code(s): 772883328 Code(s): J44.1 - CHRONIC OBSTRUCTIVE PULMONARY DISEASE W (ACUTE) EXACERBATION Status: Acute Priority: High Current Visit: Yes (2) Pneumonia SNOMED Code(s): 771963007 Code(s): J18.9 - PNEUMONIA, UNSPECIFIED ORGANISM Status: Acute Priority: High Current Visit: Yes Qualifiers: Pneumonia type: due to other aerobic Gram-negative bacteria Laterality: right Lung location: lower lobe of lung Qualified Code(s): J15.6 - Pneumonia due to other Gram-negative bacteria - Problem List Review Problem List Initiated/Reviewed/Updated: Yes - My Orders Last 24 Hours: My Active Orders 07/23/18 15:38 Vital Signs [RC] 1999,0800 - Assessment Assessment:: RLL pneumonia due to suspected gram negative bacteria COPD Exacerbation - Plan Plan:: Patient continues to feel short of breath with exertion but admits much improved since admit. Oxygen sats remain 95% on room air. Is coughing yet, nonproductive. Low grade temps. Had CT scan done last evening, no PE but noted infiltrate in RLL. WBC improved today to 9.8, CRP improved to 8.1. BMP normal. Does continue to have wheezing in the right base with fine crackles. Will start IV Solu Medrol. Make nebs scheduled QID as she does see relief of SOB with these. Ambulate as able. Nicotine patch today. Repeat labs in am. 07-23-2018 Patient is improving. She is feeling good at rest. Continues to have deep moist cough, productive at times. She does get more dyspneic with ambulation. Sats remain greater than 90%. Lung sounds continue to improve. Fine wheezing and decreased air exchange noted in RLL. WBC 14.8. CRP continues to improve, down to 3.9 today. Will continue with IV antibiotics and steroids for another day, likely discharge home tomorrow.
[2018-07-23] MEDS: rOPINIRole 1 MG Tab PO PRN (22:29)
[2018-07-24 07:59] LABS: CHLORIDE,CL 105 mEq/L (98-106); SODIUM,NA 141 mEq/L (136-145)
[2018-07-24] MEDS: Albuterol/Ipratropium 3.0-0.5 MG/3 ML Neb Soln NEB SCH ×2 (08:13→11:34)
[2018-07-24] MEDS: Venlafaxine 37.5 MG Tab PO SCH (08:14)
[2018-07-24] MEDS: Nicotine 7 MG/24 Hr Patch TRDERM SCH (08:14)
[2018-07-24 11:18] VITALS: BP 109/69
--- NOTE | 2018-07-24 11:26 | PCM.DCSUM1 ---
Discharge Summary - Hospital Course Free Text/Narrative:: Patient presented to clinic to see Saúl Dias for cold symptoms over 3 weeks. She had been using her nebulizers and noted symptoms progressing over the last few days. Feeling more short of breath. Chest tight. Cough tight, unable to expectorate. Labs done, did show elevated d-dimer. WBC 20.1, CRP 12. Admitted and started on IV Levaquin. Proceed with CTA of chest. Diagnosis: Stroke: No Modified Nunu Scale: No Symptoms at All Modified Nunu Scale Score: 0 - Discharge Data Discharge Date: 07/24/18 Discharge Disposition: Home, Self-Care 01 Condition: Good - Discharge Diagnosis/Problem(s) (1) COPD exacerbation SNOMED Code(s): 182429989 ICD Code: J44.1 - CHRONIC OBSTRUCTIVE PULMONARY DISEASE W (ACUTE) EXACERBATION Status: Acute Priority: High (2) Pneumonia SNOMED Code(s): 077110347 ICD Code: J18.9 - PNEUMONIA, UNSPECIFIED ORGANISM Status: Acute Priority : High Qualifiers: Pneumonia type: due to other aerobic Gram-negative bacteria Laterality: right Lung location: lower lobe of lung Qualified Code(s): J15.6 - Pneumonia due to other Gram-negative bacteria - Patient Summary/Data Complications: none Hospital Course: Patient has shown steady improvement over stay. CT of chest was done which showed RLL pneumonia. Has been on IV Levaquin. Maintains sats with ambulation. Lung sounds have improved, no further crackles or wheezing in the right lower lobe. WBC did drop from 20 to 9.8, back up to 14, likely due to steroids. Nebs given QID as did help with improved air exchange. Has been afebrile. Sputum collected, still awaiting full culture report. Is ambulating in halls. Started nicotine patch, wanting to attempt smoking cessation. Discharge home on Levaquin, nebs and nicotine patch. Follow up with DR. Escalera in one week. - Patient Instructions Diet: Usual Diet as Tolerated Activity: As Tolerated - Discharge Plan *PRESCRIPTION DRUG MONITORING PROGRAM REVIEWED*: No *COPY OF PRESCRIPTION DRUG MONITORING REPORT IN PATIENT SYDNI: No Prescriptions/Med Rec: Levofloxacin [Levaquin] 500 mg PO DAILY #7 tablet Nicotine [Nicotine Patch] 1 each TD DAILY #30 patch.td24 Home Medications: Home Meds Albuterol [Proventil HFA] 6.7 gm INH BID PRN 04/28/16 [History] Budesonide/Formoterol Fumarate [Symbicort 160-4.5 Mcg Inhaler] 1 puff IH DAILY PRN 04/28/16 [History] Venlafaxine HCl 225 mg PO DAILY 04/28/16 [History] rOPINIRole HCl [Ropinirole HCl] 1 - 3 mg PO TID PRN 04/28/16 [History] Cyanocobalamin (Vitamin B12) [Vitamin B12] 1 tab PO DAILY 02/21/17 [History] Multivitamin [Daily Alisa] 1 tab PO DAILY 02/21/17 [History] Albuterol/Ipratropium [DuoNeb 3.0-0.5 MG/3 ML] 3 ml INH QID PRN 02/22/17 [ History] Vitamin B Complex [B Complex] 1 each PO DAILY 02/22/17 [History] Levofloxacin [Levaquin] 500 mg PO DAILY #7 tablet 07/24/18 [Rx] Nicotine [Nicotine Patch] 1 each TD DAILY #30 patch.td24 07/24/18 [Rx] Referrals: Otilio Dias, ISABELLA [Primary Care Provider] - (Follow up with Saúl Dias in one week in [place]) - Discharge Summary/Plan Comment DC Time >30 min.: No - General Info Date of Service: 07/24/18 Admission Dx/Problem (Free Text: COPD with acute lower respiratory infection Functional Status: Reports: Pain Controlled, Tolerating Diet, Ambulating - Review of Systems General: Denies: Fever, Weakness, Fatigue, Malaise HEENT: Reports: Rhinitis Pulmonary: Reports: Shortness of Breath, Cough Cardiovascular: Denies: Chest Pain, Edema, Lightheadedness Gastrointestinal: Denies: Abdominal Pain, Nausea, Vomiting Genitourinary: Reports: No Symptoms Musculoskeletal: Reports: No Symptoms Skin: Reports: No Symptoms Neurological: Reports: No Symptoms - Patient Data Vitals - Most Recent: Last Vital Signs Temp 98.7 F 07/24/18 08:00 Pulse 103 H 07/24/18 08:00 Resp 18 07/24/18 08:00 BP 109/69 07/24/18 08:00 Pulse Ox 96 07/24/18 08:00 Weight - Most Recent: 111 lb 8 oz Lab Results - Last 24 hrs: Laboratory Results - last 24 hr 07/24/18 07/24/18 Range/Units 07:00 07:00 WBC 17.4 H (5.0-10.0) 10^3/uL RBC 4.05 (4.00-5.50) 10^6/uL Hgb 12.2 (12.0-16.0) g/dL Hct 37.4 (37.0-47.0) % MCV 92.3 (82.0-94.0) fL MCH 30.1 (27.0-32.0) pg MCHC 32.6 L (33.0-38.0) g/dL RDW Coeff of Michelle 12.4 (11.0-15.0) % Plt Count 409 H (150-400) 10^3/uL Neut % (Auto) 89.0 H (35-85) % Lymph % (Auto) 8.9 L (10-55) % [place] % (Auto) 2.0 (0-16) % Eos % (Auto) 0 (0-5) % Baso % (Auto) 0.1 (0-3) % Neut # (Auto) 15.52 H (1.80-7.00) 10^3/uL Lymph # (Auto) 1.56 (1.00-4.80) 10^3/uL [place] # (Auto) 0.35 (0.00-0.80) 10^3/uL Eos # (Auto) 0.00 (0.00-0.45) 10^3/uL Baso # (Auto) 0.01 10^3/uL Sodium 141 (136-145) mEq/L Potassium 4.1 (3.5-5.0) mEq/L Chloride 105 (98-106) mEq/L Carbon Dioxide 28 (21-32) mmol/L BUN 12 (7-18) mg/dL Creatinine 0.9 (0.6-1.0) mg/dL Est Cr Clr Drug Dosing 50.16 mL/min Estimated GFR (MDRD) > 60 (>=60) mL/min Glucose 125 H (75-99) mg/dL Calcium 9.6 (8.4-10.1) mg/dL C-Reactive Protein 1.9 H (0.2-0.8) mg/dL ISABEL Results - Last 24 hrs: Microbiology 07/22/18 21:24 Gram Stain - Final Sputum - Expectorated Med Orders - Current: Current Medications Acetaminophen (Tylenol) 650 mg PO Q4H PRN PRN Reason: Pain (Mild 1-3)/fever Last Admin: 07/23/18 22:29 Dose: 650 mg Albuterol/Ipratropium (Duoneb 3.0-0.5 Mg/3 Ml) 3 ml NEB Q4H PRN PRN Reason: Shortness Of Breath/wheezing Last Admin: 07/22/18 08:39 Dose: 3 ml Albuterol/Ipratropium (Duoneb 3.0-0.5 Mg/3 Ml) 3 ml NEB QIDRT [facility] Last Admin: 07/24/18 08:13 Dose: 3 ml Enoxaparin Sodium (Lovenox) 40 mg SUBCUT Q24H [facility] Last Admin: 07/23/18 16:57 Dose: 40 mg Levofloxacin/Dextrose 250 mg/ (Premix) 50 mls @ 50 mls/hr IV DAILY@1600 [facility] Last Admin: 07/23/18 17:01 Dose: 50 mls/hr Methylprednisolone Sodium Succinate (Solu-Medrol) 62.5 mg IVPUSH Q12H [facility] Last Admin: 07/23/18 22:58 Dose: 62.5 mg Mometasone Furoate/Formoterol Fumar (Dulera 200-5 Mcg) 1 puff IH DAILY PRN PRN Reason: Shortness of Breath Last Admin: 07/22/18 08:47 Dose: 1 puff Nicotine (Habitrol) 7 mg TRDERM DAILY [facility] Last Admin: 07/24/18 08:14 Dose: 7 mg Ropinirole HCl (Requip) 1 - 3 mg PO TID PRN PRN Reason: Spasms Last Admin: 07/23/18 22:29 Dose: 3 mg Sodium Chloride (Saline Flush) 10 ml FLUSH ASDIRECTED PRN PRN Reason: Keep Vein Open Venlafaxine HCl (Effexor) 225 mg PO DAILY [facility] Last Admin: 07/24/18 08:14 Dose: 225 mg Discontinued Medications Levofloxacin/Dextrose 500 mg/ (Premix) 100 mls @ 100 mls/hr IV ONETIME ONE Stop: 07/21/18 15:59 Last Admin: 07/21/18 15:20 Dose: 100 mls/hr Iopamidol (Isovue-370 (76%)) 100 ml IVPUSH ONETIME ONE Stop: 07/21/18 14:57 Last Admin: 07/21/18 16:00 Dose: 100 ml Ropinirole HCl (Requip) 3 mg PO ONETIME ONE Stop: 07/21/18 20:00 Last Admin: 07/21/18 21:15 Dose: Not Given - Exam General: Reports: Alert, Oriented HEENT: Reports: Mucous Membr. Moist/[place] Neck: Reports: Supple Lungs: Reports: Clear to Auscultation, Normal Respiratory Effort Cardiovascular: Reports: Regular Rate, Regular Rhythm GI/Abdominal Exam: Normal Bowel Sounds, Soft, Non-Tender Extremities: Normal Inspection, No Pedal Edema Skin: Reports: Warm, Dry Neurological: Reports: No New Focal Deficit
[2018-07-24] MEDS: methylPREDNISolone Sodium Succinate 125 MG/2 ML SDV IVPUSH SCH (11:34)
== END 2018-07-24 13:25 | disposition home or self-care (01) | DRG 178 ==
LOC: CC.MS 13:19 → CC.FCMC 13:19 → UNDOADMIN 14:31 → CC.MS 14:31
PROVIDERS: ADMIT Physician Assistant Medical; ATTEND Family Medicine
DX: J15.6 Pneumonia due to other Gram-negative bacteria (principal); J44.0 Chronic obstructive pulmonary disease with (acute) lower respiratory infection; J44.1 Chronic obstructive pulmonary disease with (acute) exacerbation; F17.210 Nicotine dependence, cigarettes, uncomplicated; T38.0X5A Adverse effect of glucocorticoids and synthetic analogues, initial encounter; Z88.6 Allergy status to analgesic agent; Z90.49 Acquired absence of other specified parts of digestive tract; Z90.710 Acquired absence of both cervix and uterus
CPT/HCPCS: 36415; 71046; 71275; 80048; 82550; 84484; 85025; 85379; 86140; 87070; 87205; 87804; 93005; 94640; A9270-GY; J1650; J1956; J2930; J7620-GY; Q9967

== ENCOUNTER 2019-03-27 11:28 | Inpatient (IN) | payer MEDICARE, OTHER ==
[2019-03-27] MEDS ORDERED: Nitroglycerin 2% Oint 1 GM UD Packet ONE (11:39)
[2019-03-27 11:52] LABS: CHLORIDE,CL 104 mEq/L (98-106); SODIUM,NA 144 mEq/L (136-145)
[2019-03-27] MEDS ORDERED: Nitroglycerin 2% Oint 1 GM UD Packet TOP ONE (11:55)
--- NOTE | 2019-03-27 12:01 | EDM.PDOC ---
ED HPI GENERAL MEDICAL PROBLEM - General Chief Complaint: Chest Pain Stated Complaint: SOB Time Seen by Provider: 03/27/19 11:51 Source of Information: Reports: Patient, Family History Limitations: Reports: No Limitations - History of Present Illness INITIAL COMMENTS - FREE TEXT/NARRATIVE: Patient to the emergency department from the [facility] [address] where she presented with chest pain off and on for about 2 weeks. She advised that the chest pain is getting more worse. She does have some shortness of breath however she does have some chronic COPD secondary to smoking. The patient denies any ear, nose, throat symptoms denies any unusual neck, back pain or stiffness denies any fever chills denies any abdominal pain no nausea no vomiting she advised that the chest pain is more of a heaviness across the anterior chest that is nonradiating. She denies any palpitations irregular heartbeat denies any calf pain redness or swelling Onset: Gradual Duration: Week(s): (2 weeks) Location: Reports: Chest Quality: Reports: Pressure Severity: Moderate Improves with: Reports: None Worsens with: Reports: None Associated Symptoms: Reports: Chest Pain, Shortness of Breath. 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) (none) - Related Data Allergies Allergy/AdvReac Type Severity Reaction Status Date / Time aspirin Allergy Other Verified 03/27/19 11:34 Home Meds: Home Meds Albuterol [Proventil HFA] 6.7 gm INH BID PRN 04/28/16 [History] Budesonide/Formoterol Fumarate [Symbicort 160-4.5 Mcg Inhaler] 1 puff IH DAILY PRN 04/28/16 [History] Venlafaxine HCl 225 mg PO DAILY 04/28/16 [History] rOPINIRole HCl [Ropinirole HCl] 1 - 3 mg PO TID PRN 04/28/16 [History] Cyanocobalamin (Vitamin B12) [Vitamin B12] 1 tab PO DAILY 02/21/17 [History] Multivitamin [Daily Alisa] 1 tab PO DAILY 02/21/17 [History] Albuterol/Ipratropium [DuoNeb 3.0-0.5 MG/3 ML] 3 ml INH QID PRN 02/22/17 [ History] Vitamin B Complex [B Complex] 1 each PO DAILY 02/22/17 [History] Past Medical History HEENT History: Reports: Impaired Vision 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 History: Reports: Endometriosis Musculoskeletal History: Reports: Other (See Below) Other Musculoskeletal History: surgery to RUE after fx Neurological History: Reports: Neuropathy, Peripheral Psychiatric History: Reports: Anxiety, Depression - Infectious Disease History Infectious Disease History: Reports: None - Past Surgical History GI Surgical History: Reports: Appendectomy, Cholecystectomy Female Surgical History: Reports: Hysterectomy Musculoskeletal Surgical History: Reports: Shoulder Surgery, Other (See Below) Other Musculoskeletal Surgeries/Procedures:: wrist Social & Family History - Family History Family Medical History: Noncontributory - Tobacco Use Smoking Status *Q: Current Every Day Smoker Years of Tobacco use: 40 Packs/Tins Daily: 0.5 - Caffeine Use Caffeine Use: Reports: Coffee, Soda - Recreational Drug Use Recreational Drug Use: No ED ROS GENERAL - Review of Systems Review Of Systems: See Below Constitutional: Reports: No Symptoms. Denies: Fever, Chills, Weakness HEENT: Reports: No Symptoms Respiratory: Reports: No Symptoms, Shortness of Breath (The patient does complain of some shortness of breath however that is no more than normal), Wheezing Cardiovascular: Reports: Chest Pain. Denies: Dyspnea on Exertion, Edema, Palpitations, Syncope Endocrine: Reports: No Symptoms GI/Abdominal: Reports: No Symptoms. Denies: Abdominal Pain, Nausea, Vomiting : Reports: No Symptoms Musculoskeletal: Reports: No Symptoms. Denies: Neck Pain, Back Pain Skin: Reports: No Symptoms. Denies: Bruising, Rash, Erythema Neurological: Reports: No Symptoms. Denies: Dizziness, Headache, Numbness, Syncope Psychiatric: Reports: No Symptoms ED EXAM, GENERAL - Physical Exam Exam: See Below Exam Limited By: No Limitations General Appearance: Alert, WD/WN, No Apparent Distress Ears: Normal External Exam Nose: Normal Inspection Throat/Mouth: Normal Inspection, Normal Voice, No Airway Compromise Head: Atraumatic, Normocephalic Neck: Normal Inspection, Supple, Non-Tender, Full Range of Motion Respiratory/Chest: No Respiratory Distress, Lungs Clear, Normal Breath Sounds, Chest Non-Tender Cardiovascular: Normal Peripheral Pulses, Regular Rate, Rhythm, No Edema, No Murmur Peripheral Pulses: 2+: Radial (L), Radial (R) GI/Abdominal: Soft, Non-Tender, No Distention, No Mass Back Exam: Normal Inspection, Full Range of Motion Extremities: Normal Inspection, Normal Range of Motion, Non-Tender, No Pedal Edema, Normal Capillary Refill. No: Pedal Edema Neurological: Alert, Oriented, Normal Cognition, Normal Gait, No Motor/Sensory Deficits Psychiatric: Normal Affect, Normal Mood Skin Exam: Warm, Dry, Intact, Normal Color EKG INTERPRETATION EKG Date: 03/27/19 Time: 11:34 Rhythm: NSR Rate (Beats/Min): 102 [place]: Normal P-Wave: Present QRS: Normal ST-T: Normal QT: Normal EKG Interpretation Comments: Twelve-lead EKG shows underlying sinus tachycardia with a ventricular rate of 102 there is no acute injury or ischemia noted there is normal R wave progression Course - Vital Signs Text/Narrative:: The patient was evaluated in the emergency department, the patient's white count is 16,000, general chemistries overall are essentially okay lipase is over thousand. Chest x-ray shows COPD. Twelve-lead EKG does not show any injury or ischemia troponin is normal. I suspect that the patient's symptoms are coming from her pancreas as she has what I believe is pancreatitis. It is unclear the reason for the pancreatitis. 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 The patient denies any drug use. Does not have diabetes and she does not know of having hyperlipidemia. A CT pancreatic protocol will be ordered. This is still pending. The patient will be admitted to the floor she will be kept n.p.o. she will be started on an IV of normal saline at 100 mL an hour she will be given Protonix 40 mg IV every 12 hours. She will have Zofran as needed. She will have labs repeated including lipid panel in the morning. She will also have cardiac enzymes routine. The patient will be reassessed and changes will be made as needed. Last Recorded V/S: Last Vital Signs Temp 37.2 C 03/27/19 12:16 Pulse 100 03/27/19 12:16 Resp 18 03/27/19 12:16 BP 119/74 03/27/19 12:16 Pulse Ox 98 03/27/19 12:16 - Orders/Labs/Meds Orders: Active Orders 24 hr Category Date Time Status Patient Status Manage Transfer [TRANSFER] Routine ADT 12/24/19 12:34 Active Patient Status [ADT] Routine ADT 03/27/19 12:38 Active Cardiac Monitoring [RC] CONTINUOUS Care 03/27/19 12:39 Active Height and Weight [RC] UPON Care 03/27/19 12:38 Active Intake and Output [RC] QSHIFT Care 03/27/19 12:39 Active Oxygen Therapy [RC] PRN Care 03/27/19 12:38 Active Peripheral IV Care [RC] . DIRECTED Care 03/27/19 12:40 Active Up ad Julieta [RC] ASDIRECTED Care 03/27/19 12:38 Active VTE/DVT Education [RC] PER UNIT ROUTINE Care 03/27/19 12:38 Active Vital Signs [RC] Q4H Care 03/27/19 12:38 Active Nothing per Oral Now Diet [DIET] Diet 03/27/19 Breakfast Active Abdomen Pelvis w Cont [CT] Stat Exams 03/27/19 12:44 Ordered Chest 2V [CR] Stat Exams 03/27/19 11:03 Taken C-REACTIVE PROTEIN [CHEM] AM Lab 03/28/19 05:11 Ordered CBC WITH AUTO DIFF [HEME] AM Lab 03/28/19 05:11 Ordered LIPID PANEL [CHEM] Stat Lab 03/28/19 12:42 Ordered TROPONIN I [CHEM] Routine Lab 03/27/19 12:45 Ordered Albuterol [Ventolin HFA] Med 03/27/19 12:43 Ordered 6.7 gm INH BID PRN Albuterol/Ipratropium [DuoNeb 3.0-0.5 MG/3 ML] Med 03/27/19 12:43 Ordered 3 ml INH QID PRN Budesonide/Formoterol Med 03/27/19 12:43 Ordered 1 puff IH DAILY PRN Enoxaparin [Lovenox] Med 03/27/19 12:45 Active 40 mg SUBCUT Q24H Morphine Med 03/27/19 12:38 Active 4 mg IVPUSH Q6H PRN Ondansetron [Zofran] Med 03/27/19 12:38 Active 4 mg IV Q6H PRN Pantoprazole [ProTONIX IV] Med 03/27/19 12:45 Active 40 mg IVPUSH Q12H Sodium Chloride 0.9% [Normal Saline] 1,000 ml Med 03/27/19 12:45 Active IV ASDIRECTED Sodium Chloride 0.9% [Saline Flush] Med 03/27/19 12:38 Active 10 ml FLUSH ASDIRECTED PRN Venlafaxine HCl [Venlafaxine HCl] Med 03/28/19 08:00 Ordered 225 mg PO DAILY Peripheral IV Insertion Adult [OM.PC] Routine Oth 03/27/19 12:38 Ordered Resuscitation Status Routine Resus Stat 03/27/19 12:38 Ordered EKG 12 Lead [EK] Routine Ther 03/28/19 12:46 Ordered Medication Orders Enoxaparin Sodium (Lovenox) 40 mg SUBCUT Q24H KYLEE Sodium Chloride (Normal Saline) 1,000 mls @ 100 mls/hr IV ASDIRECTED KYLEE Morphine Sulfate (Morphine) 4 mg IVPUSH Q6H PRN PRN Reason: Pain (severe 7-10) Ondansetron HCl (Zofran) 4 mg IV Q6H PRN PRN Reason: Nausea/Vomiting Pantoprazole Sodium (Protonix Iv) 40 mg IVPUSH Q12H KYLEE Sodium Chloride (Saline Flush) 10 ml FLUSH ASDIRECTED PRN PRN Reason: Keep Vein Open Labs: Laboratory Tests 03/27/19 03/27/19 03/27/19 Range/Units 11:30 11:30 11:30 WBC 16.6 H (5.0-10.0) 10^3/uL RBC 4.37 (4.00-5.50) 10^6/uL Hgb 13.2 (12.0-16.0) g/dL Hct 40.2 (37.0-47.0) % MCV 92.0 (82.0-94.0) fL MCH 30.2 (27.0-32.0) pg MCHC 32.8 L (33.0-38.0) g/dL RDW Coeff of Michelle 12.5 (11.0-15.0) % Plt Count 424 H (150-400) 10^3/uL Neut % (Auto) 66.0 (35-85) % Lymph % (Auto) 25.5 (10-55) % [place] % (Auto) 7.3 (0-16) % Eos % (Auto) 1.0 (0-5) % Baso % (Auto) 0.2 (0-3) % Neut # (Auto) 10.97 H (1.80-7.00) 10^3/uL Lymph # (Auto) 4.24 (1.00-4.80) 10^3/uL [place] # (Auto) 1.22 H (0.00-0.80) 10^3/uL Eos # (Auto) 0.17 (0.00-0.45) 10^3/uL Baso # (Auto) 0.04 10^3/uL PT 9.2 L (9.7-12.3) SEC INR 0.89 L (0.92-1.18) APTT 29.9 (23.2-32.3) SEC Sodium 144 (136-145) mEq/L Potassium 3.7 (3.5-5.0) mEq/L Chloride 104 (98-106) mEq/L Carbon Dioxide 29 (21-32) mmol/L BUN 12 (7-18) mg/dL Creatinine 0.8 (0.6-1.0) mg/dL Est Cr Clr Drug Dosing 57.11 mL/min Estimated GFR (MDRD) > 60 (>=60) mL/min Glucose 91 D (75-99) mg/dL Calcium 9.4 (8.4-10.1) mg/dL Total Bilirubin 0.3 (0.0-1.0) mg/dL AST 15 (15-37) U/L ALT 17 (12-78) U/L Alkaline Phosphatase 92 (46-116) U/L Lactate Dehydrogenase 197 H (100-190) U/L Creatine Kinase 95 (21-215) U/L Troponin I < 0.017 (0.00-0.06) ng/mL Total Protein 7.6 (6.4-8.2) g/dL Albumin 3.6 (3.4-5.0) g/dL Lipase 2309 H (73-393) U/L Meds: Medications Generic Name Dose Route Start Last Admin Trade Name Freq PRN Reason Stop Dose Admin Enoxaparin Sodium 40 mg 03/27/19 12:45 Lovenox SUBCUT Q24H KYLEE Sodium Chloride 1,000 mls @ 100 mls/hr 03/27/19 12:45 Normal Saline IV ASDIRECTED KYLEE Morphine Sulfate 4 mg 03/27/19 12:38 Morphine IVPUSH Q6H PRN Pain (severe 7-10) Ondansetron HCl 4 mg 03/27/19 12:38 Zofran IV Q6H PRN Nausea/Vomiting Pantoprazole Sodium 40 mg 03/27/19 12:45 Protonix Iv IVPUSH Q12H KYLEE Sodium Chloride 10 ml 03/27/19 12:38 Saline Flush FLUSH ASDIRECTED PRN Keep Vein Open Discontinued Medications Generic Name Dose Route Start Last Admin Trade Name Freq PRN Reason Stop Dose Admin Iopamidol 100 ml 03/27/19 12:38 Isovue-370 (76%) IVPUSH 03/27/19 12:39 ONETIME ONE Nitroglycerin Confirm 03/27/19 11:39 03/27/19 12:20 Nitro-Bid 2% Administered 03/27/19 11:40 Not Given Dose 1 gm .ROUTE .STK-MED ONE Nitroglycerin 1 gm 03/27/19 11:55 03/27/19 11:55 Nitro-Bid 2% TOP 03/27/19 11:56 1 gm ONETIME ONE Administration - Radiology Interpretation Free Text/Narrative:: Chest x-ray shows COPD no pneumonias Departure - Departure Time of Disposition: 12:51 Disposition: Admitted As Inpatient 68 Condition: Good Clinical Impression: Pancreatitis, Chest pain Forms: ED Department Discharge Sepsis Event Note - Evaluation Sepsis Screening Result: No Definite Risk - Focused Exam Vital Signs: Vital Signs Temp Pulse Resp BP Pulse Ox 03/27/19 12:16 37.2 C 100 18 119/74 98 03/27/19 12:01 36.6 C 101 H 14 119/72 98 03/27/19 11:46 36.9 C 96 16 110/74 98 03/27/19 11:31 36.9 C 122 H 18 143/83 H 98 Date Exam was Performed: 03/27/19 Time Exam was Performed: 12:47 - Problem List & Annotations (1) Chest pain SNOMED Code(s): 26178942 Code(s): R07.9 - CHEST PAIN, UNSPECIFIED Status: Acute Priority: High Qualifiers: Chest pain type: unspecified Qualified Code(s): R07.9 - Chest pain, unspecified (2) Pancreatitis SNOMED Code(s): 75884244 Code(s): K85.90 - ACUTE PANCREATITIS WITHOUT NECROSIS OR INFECTION, UNSP Status: Acute Priority: High Qualifiers: Chronicity: acute Pancreatitis type: unspecified pancreatitis type Acute pancreatitis complication: unspecified Qualified Code(s): K85.90 - Acute pancreatitis without necrosis or infection, unspecified - Problem List Review Problem List Initiated/Reviewed/Updated: Yes - My Orders Last 24 Hours: My Active Orders 03/27/19 11:03 Chest 2V [CR] Stat 03/27/19 12:34 Patient Status Manage Transfer [TRANSFER] Routine 03/27/19 12:38 Patient Status [ADT] Routine Height and Weight [RC] UPON Oxygen Therapy [RC] PRN Up ad Julieta [RC] ASDIRECTED VTE/DVT Education [RC] PER UNIT ROUTINE Vital Signs [RC] Q4H Morphine 4 mg IVPUSH Q6H PRN Ondansetron [Zofran] 4 mg IV Q6H PRN Sodium Chloride 0.9% [Saline Flush] 10 ml FLUSH ASDIRECTED PRN Peripheral IV Insertion Adult [OM.PC] Routine Resuscitation Status Routine 03/27/19 12:39 Cardiac Monitoring [RC] CONTINUOUS Intake and Output [RC] QSHIFT 03/27/19 12:40 Peripheral IV Care [RC] . DIRECTED 03/27/19 12:43 Albuterol [Ventolin HFA] 6.7 gm INH BID PRN Albuterol/Ipratropium [DuoNeb 3.0-0.5 MG/3 ML] 3 ml INH QID PRN Budesonide/Formoterol 1 puff IH DAILY PRN 03/27/19 12:44 Abdomen Pelvis w Cont [CT] Stat 03/27/19 12:45 TROPONIN I [CHEM] Routine Enoxaparin [Lovenox] 40 mg SUBCUT Q24H Pantoprazole [ProTONIX IV] 40 mg IVPUSH Q12H Sodium Chloride 0.9% [Normal Saline] 1,000 ml IV ASDIRECTED 03/27/19 Breakfast Nothing per Oral Now Diet [DIET] 03/28/19 05:11 C-REACTIVE PROTEIN [CHEM] AM CBC WITH AUTO DIFF [HEME] AM 03/28/19 08:00 Venlafaxine HCl [Venlafaxine HCl] 225 mg PO DAILY 03/28/19 12:42 LIPID PANEL [CHEM] Stat 03/28/19 12:46 EKG 12 Lead [EK] Routine - Assessment/Plan Admission H&P: Please use this note as an admission H&P Last 24 Hours: My Active Orders 03/27/19 11:03 Chest 2V [CR] Stat 03/27/19 12:34 Patient Status Manage Transfer [TRANSFER] Routine 03/27/19 12:38 Patient Status [ADT] Routine Height and Weight [RC] UPON Oxygen Therapy [RC] PRN Up ad Julieta [RC] ASDIRECTED VTE/DVT Education [RC] PER UNIT ROUTINE Vital Signs [RC] Q4H Morphine 4 mg IVPUSH Q6H PRN Ondansetron [Zofran] 4 mg IV Q6H PRN Sodium Chloride 0.9% [Saline Flush] 10 ml FLUSH ASDIRECTED PRN Peripheral IV Insertion Adult [OM.PC] Routine Resuscitation Status Routine 03/27/19 12:39 Cardiac Monitoring [RC] CONTINUOUS Intake and Output [RC] QSHIFT 03/27/19 12:40 Peripheral IV Care [RC] . DIRECTED 03/27/19 12:43 Albuterol [Ventolin HFA] 6.7 gm INH BID PRN Albuterol/Ipratropium [DuoNeb 3.0-0.5 MG/3 ML] 3 ml INH QID PRN Budesonide/Formoterol 1 puff IH DAILY PRN 03/27/19 12:44 Abdomen Pelvis w Cont [CT] Stat 03/27/19 12:45 TROPONIN I [CHEM] Routine Enoxaparin [Lovenox] 40 mg SUBCUT Q24H Pantoprazole [ProTONIX IV] 40 mg IVPUSH Q12H Sodium Chloride 0.9% [Normal Saline] 1,000 ml IV ASDIRECTED 03/27/19 Breakfast Nothing per Oral Now Diet [DIET] 03/28/19 05:11 C-REACTIVE PROTEIN [CHEM] AM CBC WITH AUTO DIFF [HEME] AM 03/28/19 08:00 Venlafaxine HCl [Venlafaxine HCl] 225 mg PO DAILY 03/28/19 12:42 LIPID PANEL [CHEM] Stat 03/28/19 12:46 EKG 12 Lead [EK] Routine Plan: As above
[2019-03-27] MEDS ORDERED: Iopamidol 755 Mg/ML 100 ML Bottle IVPUSH ONE (12:38)
[2019-03-27] MEDS ORDERED: Morphine 2 MG/ML Syringe IVPUSH PRN (12:38)
[2019-03-27] MEDS ORDERED: Sodium Chloride 0.9% 10 ML Syringe FLUSH PRN (12:38)
[2019-03-27] MEDS ORDERED: Ondansetron 4 MG/2 ML SDV IV PRN (12:38)
[2019-03-27] MEDS ORDERED: Albuterol/Ipratropium 3.0-0.5 MG/3 ML Neb Soln INH PRN (12:43)
[2019-03-27] MEDS ORDERED: Albuterol 8 GM Inhaler INH PRN (12:43)
[2019-03-27] MEDS ORDERED: Non-Formulary Medication 1 Each (Budesonide/Formoterol 1 PUFF) IH PRN (12:43)
[2019-03-27] MEDS ORDERED: Enoxaparin 40 MG/0.4 ML Syringe SUBCUT SCH (12:45)
[2019-03-27] MEDS: Sodium Chloride 0.9% 1,000 ML IV SCH (14:12)
[2019-03-27] MEDS: Pantoprazole 40 MG Vial IVPUSH SCH (14:14)
[2019-03-28] MEDS: Sodium Chloride 0.9% 1,000 ML IV SCH (00:08)
[2019-03-28] MEDS: Pantoprazole 40 MG Vial IVPUSH SCH (00:12)
[2019-03-28] MEDS ORDERED: VENLAFAXINE HCL 225 MG PO SCH (08:00)
[2019-03-28] MEDS ORDERED: Acetaminophen 325 MG Tab PO PRN (08:14)
[2019-03-28 08:46] VITALS: BP 117/70; PULSE 90
--- NOTE | 2019-03-28 09:02 | PCM.DCSUM1 ---
Discharge Summary - Hospital Course Free Text/Narrative:: pt in with elevated Lipase and chest pain HPI Initial Comments: see yesterdays note Brief History: see yesterdays note Diagnosis: Stroke: No Modified Yancey Scale: No Symptoms at All Modified Yancey Scale Score: 0 - Discharge Data Discharge Date: 03/28/19 Discharge Disposition: Home, Self-Care 01 Condition: Good - Referral to Home Health Primary Care Physician: PCP None - Discharge Diagnosis/Problem(s) (1) Chest pain SNOMED Code(s): 22008480 ICD Code: R07.9 - CHEST PAIN, UNSPECIFIED Status: Acute Priority: High Current Visit: No Qualifiers: Chest pain type: unspecified Qualified Code(s): R07.9 - Chest pain, unspecified (2) Pancreatitis SNOMED Code(s): 63562315 ICD Code: K85.90 - ACUTE PANCREATITIS WITHOUT NECROSIS OR INFECTION, UNSP Status: Acute Priority: High Current Visit: No Qualifiers: Chronicity: acute Pancreatitis type: unspecified pancreatitis type Acute pancreatitis complication: unspecified Qualified Code(s): K85.90 - Acute pancreatitis without necrosis or infection, unspecified - Patient Instructions Diet: Heart Healthy Diet Activity: As Tolerated Driving: May Drive Today Showering/Bathing: May Shower Other/Special Instructions: follow up with your family doctor for further evaluation and treatment of yopur chest pain to include possible stress test and other testing as necessary, calll in am for an appointment time. return to the ER sooner if worse or problems - Discharge Plan *PRESCRIPTION DRUG MONITORING PROGRAM REVIEWED*: Not Applicable *COPY OF PRESCRIPTION DRUG MONITORING REPORT IN PATIENT SYDNI: Not Applicable Home Medications: Home Meds Albuterol [Proventil HFA] 6.7 gm INH BID PRN 04/28/16 [History] Budesonide/Formoterol Fumarate [Symbicort 160-4.5 Mcg Inhaler] 1 puff IH DAILY PRN 04/28/16 [History] Venlafaxine HCl 225 mg PO DAILY 04/28/16 [History] rOPINIRole HCl [Ropinirole HCl] 1 - 3 mg PO TID PRN 04/28/16 [History] Cyanocobalamin (Vitamin B12) [Vitamin B12] 1 tab PO DAILY 02/21/17 [History] Multivitamin [Daily Alisa] 1 tab PO DAILY 11/20/17 [History] Albuterol/Ipratropium [DuoNeb 3.0-0.5 MG/3 ML] 3 ml INH QID PRN 02/22/17 [ History] Vitamin B Complex [B Complex] 1 each PO DAILY 02/22/17 [History] Oxygen Therapy Mode: Room Air Forms: ED Department Discharge Referrals: PCP,None [Primary Care Provider] - - Discharge Summary/Plan Comment DC Time >30 min.: Yes - General Info Date of Service: 03/28/19 Admission Dx/Problem (Free Text: chest pain and elevated lipase/pancreatitis Functional Status: Reports: Pain Controlled - Review of Systems General: Reports: No Symptoms. Denies: Fever, Weakness HEENT: Reports: No Symptoms Pulmonary: Reports: No Symptoms. Denies: Shortness of Breath Cardiovascular: Reports: No Symptoms. Denies: Chest Pain Gastrointestinal: Reports: No Symptoms. Denies: Abdominal Pain, Nausea, Vomiting Musculoskeletal: Reports: No Symptoms Skin: Reports: No Symptoms Neurological: Reports: No Symptoms Psychiatric: Reports: No Symptoms - Patient Data Vitals - Most Recent: Last Vital Signs Temp 37.5 C 03/28/19 08:00 Pulse 90 03/28/19 08:00 Resp 16 03/28/19 08:00 BP 117/70 03/28/19 08:00 Pulse Ox 98 03/28/19 08:00 Weight - Most Recent: 48.761 kg I&O - Last 24 hours: Intake & Output 03/27/19 03/28/19 03/28/19 22:59 06:59 14:59 Intake Total 993 Balance 993 Lab Results - Last 24 hrs: Laboratory Results - last 24 hr 03/27/19 03/27/19 03/27/19 Range/Units 11:30 11:30 11:30 WBC 16.6 H (5.0-10.0) 10^3/uL RBC 4.37 (4.00-5.50) 10^6/uL Hgb 13.2 (12.0-16.0) g/dL Hct 40.2 (37.0-47.0) % MCV 92.0 (82.0-94.0) fL MCH 30.2 (27.0-32.0) pg MCHC 32.8 L (33.0-38.0) g/dL RDW Coeff of Michelle 12.5 (11.0-15.0) % Plt Count 424 H (150-400) 10^3/uL Neut % (Auto) 66.0 (35-85) % Lymph % (Auto) 25.5 (10-55) % Centre % (Auto) 7.3 (0-16) % Eos % (Auto) 1.0 (0-5) % Baso % (Auto) 0.2 (0-3) % Neut # (Auto) 10.97 H (1.80-7.00) 10^3/uL Lymph # (Auto) 4.24 (1.00-4.80) 10^3/uL Centre # (Auto) 1.22 H (0.00-0.80) 10^3/uL Eos # (Auto) 0.17 (0.00-0.45) 10^3/uL Baso # (Auto) 0.04 10^3/uL PT 9.2 L (9.7-12.3) SEC INR 0.89 L (0.92-1.18) APTT 29.9 (23.2-32.3) SEC Sodium 144 (136-145) mEq/L Potassium 3.7 (3.5-5.0) mEq/L Chloride 104 (98-106) mEq/L Carbon Dioxide 29 (21-32) mmol/L BUN 12 (7-18) mg/dL Creatinine 0.8 (0.6-1.0) mg/dL Est Cr Clr Drug Dosing 57.11 mL/min Estimated GFR (MDRD) > 60 (>=60) mL/min Glucose 91 D (75-99) mg/dL Calcium 9.4 (8.4-10.1) mg/dL Total Bilirubin 0.3 (0.0-1.0) mg/dL AST 15 (15-37) U/L ALT 17 (12-78) U/L Alkaline Phosphatase 92 (46-116) U/L Lactate Dehydrogenase 197 H (100-190) U/L Creatine Kinase 95 (21-215) U/L Troponin I < 0.017 (0.00-0.06) ng/mL C-Reactive Protein (0.2-0.8) mg/dL Total Protein 7.6 (6.4-8.2) g/dL Albumin 3.6 (3.4-5.0) g/dL Triglycerides (30-150) mg/dL Cholesterol (0-199) mg/dL LDL Cholesterol, Calc (0-99) mg/dL HDL Cholesterol (60-90) mg/dL Lipase 2309 H (73-393) U/L 03/27/19 03/28/19 03/28/19 Range/Units 17:20 05:11 07:00 WBC 12.3 H (5.0-10.0) 10^3/uL RBC 4.07 (4.00-5.50) 10^6/uL Hgb 12.3 (12.0-16.0) g/dL Hct 37.7 (37.0-47.0) % MCV 92.6 (82.0-94.0) fL MCH 30.2 (27.0-32.0) pg MCHC 32.6 L (33.0-38.0) g/dL RDW Coeff of Michelle 12.4 (11.0-15.0) % Plt Count 441 H (150-400) 10^3/uL Neut % (Auto) 66.3 (35-85) % Lymph % (Auto) 25.6 (10-55) % Centre % (Auto) 6.2 (0-16) % Eos % (Auto) 1.7 (0-5) % Baso % (Auto) 0.2 (0-3) % Neut # (Auto) 8.17 H (1.80-7.00) 10^3/uL Lymph # (Auto) 3.16 (1.00-4.80) 10^3/uL Centre # (Auto) 0.76 (0.00-0.80) 10^3/uL Eos # (Auto) 0.21 (0.00-0.45) 10^3/uL Baso # (Auto) 0.03 10^3/uL PT (9.7-12.3) SEC INR (0.92-1.18) APTT (23.2-32.3) SEC Sodium (136-145) mEq/L Potassium (3.5-5.0) mEq/L Chloride (98-106) mEq/L Carbon Dioxide (21-32) mmol/L BUN (7-18) mg/dL Creatinine (0.6-1.0) mg/dL Est Cr Clr Drug Dosing mL/min Estimated GFR (MDRD) (>=60) mL/min Glucose (75-99) mg/dL Calcium (8.4-10.1) mg/dL Total Bilirubin (0.0-1.0) mg/dL AST (15-37) U/L ALT (12-78) U/L Alkaline Phosphatase (46-116) U/L Lactate Dehydrogenase (100-190) U/L Creatine Kinase (21-215) U/L Troponin I < 0.017 (0.00-0.06) ng/mL C-Reactive Protein 3.5 H (0.2-0.8) mg/dL Total Protein (6.4-8.2) g/dL Albumin (3.4-5.0) g/dL Triglycerides 96 (30-150) mg/dL Cholesterol 149 (0-199) mg/dL LDL Cholesterol, Calc 81 (0-99) mg/dL HDL Cholesterol 49 L (60-90) mg/dL Lipase (73-393) U/L 03/28/19 Range/Units 08:14 WBC (5.0-10.0) 10^3/uL RBC (4.00-5.50) 10^6/uL Hgb (12.0-16.0) g/dL Hct (37.0-47.0) % MCV (82.0-94.0) fL MCH (27.0-32.0) pg MCHC (33.0-38.0) g/dL RDW Coeff of Michelle (11.0-15.0) % Plt Count (150-400) 10^3/uL Neut % (Auto) (35-85) % Lymph % (Auto) (10-55) % Centre % (Auto) (0-16) % Eos % (Auto) (0-5) % Baso % (Auto) (0-3) % Neut # (Auto) (1.80-7.00) 10^3/uL Lymph # (Auto) (1.00-4.80) 10^3/uL Centre # (Auto) (0.00-0.80) 10^3/uL Eos # (Auto) (0.00-0.45) 10^3/uL Baso # (Auto) 10^3/uL PT (9.7-12.3) SEC INR (0.92-1.18) APTT (23.2-32.3) SEC Sodium (136-145) mEq/L Potassium (3.5-5.0) mEq/L Chloride (98-106) mEq/L Carbon Dioxide (21-32) mmol/L BUN (7-18) mg/dL Creatinine (0.6-1.0) mg/dL Est Cr Clr Drug Dosing mL/min Estimated GFR (MDRD) (>=60) mL/min Glucose (75-99) mg/dL Calcium (8.4-10.1) mg/dL Total Bilirubin (0.0-1.0) mg/dL AST (15-37) U/L ALT (12-78) U/L Alkaline Phosphatase (46-116) U/L Lactate Dehydrogenase (100-190) U/L Creatine Kinase (21-215) U/L Troponin I (0.00-0.06) ng/mL C-Reactive Protein (0.2-0.8) mg/dL Total Protein (6.4-8.2) g/dL Albumin (3.4-5.0) g/dL Triglycerides (30-150) mg/dL Cholesterol (0-199) mg/dL LDL Cholesterol, Calc (0-99) mg/dL HDL Cholesterol (60-90) mg/dL Lipase 83 (73-393) U/L Med Orders - Current: Current Medications Acetaminophen (Tylenol) 650 mg PO Q4H PRN PRN Reason: Pain/Fever Last Admin: 03/28/19 08:19 Dose: 650 mg Enoxaparin Sodium (Lovenox) 40 mg SUBCUT Q24H [facility] Last Admin: 03/27/19 14:15 Dose: 40 mg Sodium Chloride (Normal Saline) 1,000 mls @ 100 mls/hr IV ASDIRECTED [facility] Last Admin: 03/28/19 00:08 Dose: 100 mls/hr Morphine Sulfate (Morphine) 4 mg IVPUSH Q6H PRN PRN Reason: Pain (severe 7-10) Ondansetron HCl (Zofran) 4 mg IV Q6H PRN PRN Reason: Nausea/Vomiting Pantoprazole Sodium (Protonix Iv) 40 mg IVPUSH Q12H [facility] Last Admin: 03/28/19 00:12 Dose: 40 mg Sodium Chloride (Saline Flush) 10 ml FLUSH ASDIRECTED PRN PRN Reason: Keep Vein Open Discontinued Medications Albuterol (Ventolin Hfa) 6.7 gm INH BID PRN PRN Reason: Shortness of Breath Albuterol/Ipratropium (Duoneb 3.0-0.5 Mg/3 Ml) 3 ml INH QID PRN PRN Reason: Dyspnea Iopamidol (Isovue-370 (76%)) 100 ml IVPUSH ONETIME ONE Stop: 03/27/19 12:39 Last Admin: 03/27/19 13:05 Dose: 100 ml Nitroglycerin (Nitro-Bid 2%) Confirm Administered Dose 1 gm .ROUTE .STK-MED ONE Stop: 03/27/19 11:40 Last Admin: 03/27/19 12:20 Dose: Not Given Nitroglycerin (Nitro-Bid 2%) 1 gm TOP ONETIME ONE Stop: 03/27/19 11:56 Last Admin: 03/27/19 11:55 Dose: 1 gm Non-Formulary Medication (Budesonide/Formoterol) 1 puff IH DAILY PRN PRN Reason: Shortness of Breath Non-Formulary Medication (Venlafaxine Hcl [Venlafaxine Hcl]) 225 mg PO DAILY KYLEE - Exam General: Reports: Alert, Oriented, Cooperative, No Acute Distress Neck: Reports: Supple Lungs: Reports: Normal Respiratory Effort, Wheezing (scattered exp wheezing). Denies: Clear to Auscultation Cardiovascular: Reports: Regular Rate, Regular Rhythm, No Murmurs GI/Abdominal Exam: Normal Bowel Sounds, Soft, Non-Tender, No Organomegaly Back Exam: Reports: Normal Inspection, Full Range of Motion Extremities: Normal Inspection, Normal Range of Motion, Non-Tender, No Pedal Edema, Normal Capillary Refill Skin: Reports: Warm, Dry, Intact Neurological: Reports: No New Focal Deficit, Normal Gait, Normal Speech Psy/Mental Status: Reports: Alert, Normal Affect, Normal Mood
== END 2019-03-28 10:43 | disposition home or self-care (01) | DRG 440 ==
LOC: CC.ED 11:28 → CC.MS 12:34 → UNDOADMIN 12:38 → UNDODISIN 03-28 10:43
PROVIDERS: ADMIT Nurse Practitioner; ATTEND Family Medicine
DX: K85.90 Acute pancreatitis without necrosis or infection, unspecified (principal); R07.9 Chest pain, unspecified; R07.89 Other chest pain; F17.210 Nicotine dependence, cigarettes, uncomplicated; H54.7 Unspecified visual loss; G62.9 Polyneuropathy, unspecified; J44.9 Chronic obstructive pulmonary disease, unspecified; F41.9 Anxiety disorder, unspecified; F32.9 Major depressive disorder, single episode, unspecified; F17.200 Nicotine dependence, unspecified, uncomplicated; Z88.8 Allergy status to other drugs, medicaments and biological substances; Z88.6 Allergy status to analgesic agent; Z79.899 Other long term (current) drug therapy; Z90.49 Acquired absence of other specified parts of digestive tract; Z90.710 Acquired absence of both cervix and uterus
CPT/HCPCS: 36415; 71046; 74178; 80053; 80061; 82550; 83615; 83690; 84484; 85025; 85610; 85730; 86140; 93005; 99285; A9270-GY; C9113; J1650; J7030; Q9967

== ENCOUNTER 2020-05-30 22:46 | Emergency (ER) | payer MEDICARE, OTHER ==
[2020-05-30] MEDS ORDERED: Albuterol/Ipratropium 3.0-0.5 MG/3 ML Neb Soln NEB ONE (23:10)
[2020-05-30] MEDS ORDERED: methylPREDNISolone Sodium Succinate 125 MG/2 ML SDV IVPUSH STA (23:10)
--- NOTE | 2020-05-30 23:27 | EDM.PDOC ---
ED HPI GENERAL MEDICAL PROBLEM - General Chief Complaint: General Stated Complaint: asthma Time Seen by Provider: 05/30/20 23:09 Source of Information: Reports: Patient History Limitations: Reports: No Limitations - History of Present Illness INITIAL COMMENTS - FREE TEXT/NARRATIVE: This patient is a pleasant 64 year old that presents to the ER via EMS. Patient reports that she went to the basketball game and was fine this evening. She reports then at home at 9pm she was sitting there watching TV when she started to have an asthma attack. Patient reports she has had asthma attacks in the past. She reports also COPD history. Patient reports that she took her inhaler and took a couple of puffs, then used her breathing neb at home x2. She reports she was getting worse, so EMS came. She had another neb in route. Patient reports that she feels like the EMS tx helped. When patient arrives she appears short of breath, and has audible wheezes heard. She is able to talk in full and complete sentences. The patient reports that it came in all of a sudden. She reports she has not been ill recently. She denies headache, n, v, d, f, congestion, drainage, productive cough, chest pain, abd pain, urinary/bowel changes. She reports she no longer smokes, she quit 5 months ago. Patient reports she is supposed to see a automation specialist early in June. Onset: Today Onset Date: 05/30/20 Onset Time: 21:00 Severity: Moderate Improves with: Reports: None Worsens with: Reports: None Associated Symptoms: Reports: Cough, Shortness of Breath. Denies: Confusion, Chest Pain, cough w sputum, Diaphoresis, Fever/Chills, Headaches, Loss of Appetite, Malaise, Nausea/Vomiting, Rash, Seizure, Syncope, Weakness - Related Data Allergies Allergy/AdvReac Type Severity Reaction Status Date / Time aspirin Allergy Other Verified 05/30/20 22:56 Home Meds: Home Meds Venlafaxine HCl 75 mg PO DAILY 04/28/16 [History] Cyanocobalamin (Vitamin B12) [Vitamin B12] 1 tab PO DAILY 02/21/17 [History] Vitamin B Complex [B Complex] 1 each PO DAILY 02/22/17 [History] Acetaminophen [Tylenol] 1,000 mg PO QID PRN 04/12/19 [History] Albuterol [Ventolin HFA] 1 each INH Q4HR PRN 04/12/19 [History] Cholecalciferol (Vitamin D3) [Vitamin D] 10,000 units PO DAILY 04/12/19 [History] Albuterol/Ipratropium [DuoNeb 3.0-0.5 MG/3 ML] 3 ml INH TID 05/31/20 [History] predniSONE 20 mg PO BID 5 Days #10 tab 05/31/20 [Rx] rOPINIRole HCl [Ropinirole ER] 4 mg PO BEDTIME 05/31/20 [History] Past Medical History HEENT History: Reports: Impaired Vision Respiratory History: Reports: Asthma, COPD DIVISION HEAD History: Reports: Endometriosis Musculoskeletal History: Reports: Other (See Below) Other Musculoskeletal History: surgery to RUE after fx Neurological History: Reports: Neuropathy, Peripheral Psychiatric History: Reports: Anxiety, Depression - Infectious Disease History Infectious Disease History: Reports: None - Past Surgical History GI Surgical History: Reports: Appendectomy, Cholecystectomy Female Surgical History: Reports: Hysterectomy Musculoskeletal Surgical History: Reports: Shoulder Surgery, Other (See Below) Other Musculoskeletal Surgeries/Procedures:: wrist Social & Family History - Family History Family Medical History: No Pertinent Family History - Caffeine Use Caffeine Use: Reports: Coffee, Soda ED ROS GENERAL - Review of Systems Review Of Systems: See Below Constitutional: Reports: No Symptoms HEENT: Reports: No Symptoms Respiratory: Reports: Shortness of Breath, Wheezing, Cough. Denies: Sputum Cardiovascular: Reports: No Symptoms. Denies: Chest Pain, Edema, Palpitations, Syncope Endocrine: Reports: No Symptoms GI/Abdominal: Reports: No Symptoms : Reports: No Symptoms Musculoskeletal: Reports: No Symptoms Skin: Reports: No Symptoms Neurological: Reports: No Symptoms Psychiatric: Reports: Anxiety Hematologic/Lymphatic: Reports: No Symptoms Immunologic: Reports: No Symptoms ED EXAM, GENERAL - Physical Exam Exam: See Below Exam Limited By: No Limitations General Appearance: Alert, WD/WN, Anxious, Mild Distress (short of breath) Eye Exam: Bilateral Eye: Normal Inspection, PERRL Ears: Normal External Exam, Normal Canal, Hearing Grossly Normal, Normal TMs Ear Exam: Bilateral Ear: Auricle Normal, Canal Normal, TM normal Nose: Normal Inspection, Normal Mucosa, No Blood Throat/Mouth: Normal Inspection, Normal Lips, Normal Teeth, Normal Gums, Normal Oropharynx, Normal Voice, No Airway Compromise Head: Atraumatic, Normocephalic Neck: Normal Inspection, Supple, Non-Tender, Full Range of Motion Respiratory/Chest: Chest Non-Tender, Respiratory Distress (mild), Decreased Breath Sounds (moderately throughout), Wheezing, Accessory Muscle Use. No: Stridor Cardiovascular: Normal Peripheral Pulses, Regular Rate, Rhythm, No Edema, No Gallop, No JVD, No Murmur, No Rub Peripheral Pulses: 2+: Radial (L), Radial (R), Posterior Tibial (L), Posterior Tibial (R) GI/Abdominal: Soft, Non-Tender (Female) Exam: Deferred Rectal (Female) Exam: Deferred Back Exam: Normal Inspection, Full Range of Motion Extremities: Normal Inspection, Normal Range of Motion, Non-Tender, No Pedal Edema, Normal Capillary Refill Neurological: Alert, Oriented, Normal Cognition, Normal Gait, No Motor/Sensory Deficits Psychiatric: Anxious Skin Exam: Warm, Dry, Intact, Normal Color, No Rash Lymphatic: No Adenopathy #1 Interpretation EKG Date: 05/30/20 Time: 23:34 Rhythm: Other (Simulator pump per patient. Unable to interpret EKG.) Rate (Beats/Min): 102 Course - Vital Signs Last Recorded V/S: Last Vital Signs Temp 97 F 05/31/20 06:40 Pulse 95 05/31/20 06:40 Resp 18 05/31/20 06:40 BP 132/78 05/31/20 06:40 Pulse Ox 95 05/31/20 06:40 - Orders/Labs/Meds Orders: Active Orders 24 hr Category Date Time Status RT Aerosol Therapy [RC] ASDIRECTED Care 05/30/20 23:10 Active Ang Chest [CT] Stat Exams 05/31/20 00:23 Taken Chest 2V [CR] Stat Exams 05/30/20 23:10 Taken CULTURE BLOOD [BC] Stat Lab 05/30/20 23:38 Received CULTURE BLOOD [BC] Stat Lab 05/30/20 23:38 Received Sodium Chloride 0.9% [Normal Saline] 500 ml Med 05/31/20 00:30 Active IV .BOLUS Blood Culture x2 Reflex Set [OM.PC] Stat Oth 05/30/20 23:13 Ordered EKG 12 Lead [EK] Stat Ther 05/30/20 23:10 Ordered Medication Orders Sodium Chloride (Normal Saline) 500 mls @ 500 mls/hr IV .BOLUS KYLEE Last Admin: 05/31/20 00:56 Dose: 500 mls/hr Documented by: SANDRA Labs: Laboratory Tests 05/30/20 05/30/20 05/30/20 Range/Units 23:13 23:38 23:38 WBC 10.9 H (5.0-10.0) 10^3/uL RBC 4.04 (4.00-5.50) 10^6/uL Hgb 12.0 (12.0-16.0) g/dL Hct 36.0 L (37.0-47.0) % MCV 89.1 (82.0-94.0) fL MCH 29.7 (27.0-32.0) pg MCHC 33.3 (33.0-38.0) g/dL RDW Coeff of Michelle 12.4 (11.0-15.0) % Plt Count 405 H (150-400) 10^3/uL Neut % (Auto) 52.0 (35-85) % Lymph % (Auto) 34.0 (10-55) % Ford % (Auto) 7.6 (0-16) % Eos % (Auto) 5.8 H (0-5) % Baso % (Auto) 0.6 (0-3) % Neut # (Auto) 5.65 (1.80-7.00) 10^3/uL Lymph # (Auto) 3.69 (1.00-4.80) 10^3/uL Ford # (Auto) 0.82 H (0.00-0.80) 10^3/uL Eos # (Auto) 0.63 H (0.00-0.45) 10^3/uL Baso # (Auto) 0.06 10^3/uL PT (9.7-12.3) SEC INR (0.92-1.18) D-Dimer, Quantitative (0.00-0.50) Sodium 143 (136-145) mEq/L Potassium 3.2 L (3.5-5.0) mEq/L Chloride 106 (98-106) mEq/L Carbon Dioxide 26 (21-32) mmol/L BUN 15 D (7-18) mg/dL Creatinine 1.1 H (0.6-1.0) mg/dL Est Cr Clr Drug Dosing 40.01 mL/min Estimated GFR (MDRD) 50 L (>=60) mL/min Glucose 144 H (75-99) mg/dL Lactic Acid (0.4-2.0) mmol/L Calcium 8.6 (8.4-10.1) mg/dL Total Bilirubin 0.2 (0.0-1.0) mg/dL AST 22 (15-37) U/L ALT 27 (12-78) U/L Alkaline Phosphatase 117 H (46-116) U/L Lactate Dehydrogenase 218 H (100-190) U/L Creatine Kinase 244 H (21-215) U/L Troponin I 0.021 (0.00-0.06) ng/mL C-Reactive Protein < 0.2 L (0.2-0.8) mg/dL NT-Pro-B Natriuret Pep 89 (0-1000) pg/mL Total Protein 6.8 (6.4-8.2) g/dL Albumin 3.5 (3.4-5.0) g/dL SARS CoV-2 RNA Rapid LAMIN Negative (NEGATIVE) 05/30/20 05/30/20 05/30/20 Range/Units 23:38 23:38 23:38 WBC (5.0-10.0) 10^3/uL RBC (4.00-5.50) 10^6/uL Hgb (12.0-16.0) g/dL Hct (37.0-47.0) % MCV (82.0-94.0) fL MCH (27.0-32.0) pg MCHC (33.0-38.0) g/dL RDW Coeff of Michelle (11.0-15.0) % Plt Count (150-400) 10^3/uL Neut % (Auto) (35-85) % Lymph % (Auto) (10-55) % Ford % (Auto) (0-16) % Eos % (Auto) (0-5) % Baso % (Auto) (0-3) % Neut # (Auto) (1.80-7.00) 10^3/uL Lymph # (Auto) (1.00-4.80) 10^3/uL Ford # (Auto) (0.00-0.80) 10^3/uL Eos # (Auto) (0.00-0.45) 10^3/uL Baso # (Auto) 10^3/uL PT 10.1 (9.7-12.3) SEC INR 1.00 (0.92-1.18) D-Dimer, Quantitative 0.75 H (0.00-0.50) Sodium (136-145) mEq/L Potassium (3.5-5.0) mEq/L Chloride (98-106) mEq/L Carbon Dioxide (21-32) mmol/L BUN (7-18) mg/dL Creatinine (0.6-1.0) mg/dL Est Cr Clr Drug Dosing mL/min Estimated GFR (MDRD) (>=60) mL/min Glucose (75-99) mg/dL Lactic Acid 1.6 (0.4-2.0) mmol/L Calcium (8.4-10.1) mg/dL Total Bilirubin (0.0-1.0) mg/dL AST (15-37) U/L ALT (12-78) U/L Alkaline Phosphatase (46-116) U/L Lactate Dehydrogenase (100-190) U/L Creatine Kinase (21-215) U/L Troponin I (0.00-0.06) ng/mL C-Reactive Protein (0.2-0.8) mg/dL NT-Pro-B Natriuret Pep (0-1000) pg/mL Total Protein (6.4-8.2) g/dL Albumin (3.4-5.0) g/dL SARS CoV-2 RNA Rapid LAMIN (NEGATIVE) Meds: Medications Generic Name Dose Route Start Last Admin Trade Name Freq PRN Reason Stop Dose Admin Sodium Chloride 500 mls @ 500 mls/hr 05/31/20 00:30 05/31/20 00:56 Normal Saline IV 500 mls/hr .BOLUS KYLEE Administration Discontinued Medications Generic Name Dose Route Start Last Admin Trade Name Freq PRN Reason Stop Dose Admin Albuterol/Ipratropium 3 ml 05/30/20 23:10 05/30/20 23:14 Duoneb 3.0-0.5 Mg/3 Ml NEB 05/30/20 23:11 3 ml ONETIME ONE Administration Iopamidol 100 ml 05/31/20 00:50 02/27/21 01:03 Isovue-370 (76%) IVPUSH 05/31/20 00:51 100 ml ONETIME ONE Administration Methylprednisolone Sodium Succinate 125 mg 05/30/20 23:10 05/30/20 23:15 Solu-Medrol IVPUSH 05/30/20 23:11 125 mg NOW STA Administration Potassium Chloride 40 meq 05/31/20 00:24 05/31/20 00:57 Klor-Con 10 PO 05/31/20 00:25 40 meq ONETIME ONE Administration Ropinirole HCl 4 mg 05/31/20 01:06 05/31/20 01:15 Requip PO 05/31/20 01:07 4 mg NOW STA Administration - Radiology Interpretation Free Text/Narrative:: CXR: No infiltrates. COPD. CTA: No PE. Emphysema. CT Results Date: 05/31/20 CT Results Time: 01:46 - Re-Assessments/Exams Free Text/Narrative Re-Assessment/Exam: 05/30/20 23:27 Post neb in ER, patient is now talking even more without difficulty. She has more audible wheezes. She reports her breathing does feel better. 05/30/20 23:38 Patient states "Im breathing a lot better now." 05/31/20 00:34 Patient has removed her oxygen. She is 94% RA. She reports she feels good still and not short of breath. Patient labs have been reviewed and discussed with patient. Her d-dimer is elevated. No leg redness, swelling, pain. However, abrupt onset of dyspnea and elevated d-dimer, will ct angio. Patient potassium is 3.2, will give one po dose. CR is 1.1, will ct chest, will give fluids for these two reasons. I will keep patient extended ER, continue evaluation of her breathing. If CT Angio has no PEs and her breathing remains good during extended stay, will discharge this morning. Her troponin is negative. She did get total of 4 nebs. She denies any chest pain. And currently denies shortness of breath. 05/31/20 04:16 Patient reports she is still breathing well. CTA chest negative for PE. She carl es any CP or shortness of breath. Departure - Departure Time of Disposition: 04:16 Disposition: Home, Self-Care 01 Condition: Fair Clinical Impression: COPD exacerbation Asthma attack Qualifiers: Asthma severity: moderate Asthma persistence: persistent Qualified Code(s): J45.41 - Moderate persistent asthma with (acute) exacerbation - Discharge Information *PRESCRIPTION DRUG MONITORING PROGRAM REVIEWED*: Not Applicable *COPY OF PRESCRIPTION DRUG MONITORING REPORT IN PATIENT SYDNI: Not Applicable Prescriptions: predniSONE 20 mg PO BID 5 Days #10 tab Instructions: Asthma, Adult, Chronic Obstructive Pulmonary Disease, [id number], Form - Asthma Action Plan, Adult, Asthma Attack Prevention, Adult, Asthma and Physical Activity Referrals: Otilio Dias PA-C [Primary Care Provider] - Forms: ED Department Discharge Additional Instructions: Followup with you primary care provider this week Followup with your specialist as scheduled Return to the ER for worsening of condition or any emergent concerns Go home and rest Prednisone 20mg 1 pill twice a day for 5 days #10 no refill Sent to [facility] Inhaler as needed Neb as needed, as soon as you get home and every 4 hours as needed Sepsis Event Note (ED) - Focused Exam Vital Signs: Vital Signs Temp Pulse Resp BP Pulse Ox 05/31/20 06:40 97 F 95 18 132/78 95 05/30/20 23:25 104 H 18 145/81 H 96 05/30/20 23:18 97.3 F 123 H 22 H 123/96 H 92 L - My Orders Last 24 Hours: My Active Orders 05/30/20 23:10 RT Aerosol Therapy [RC] ASDIRECTED Chest 2V [CR] Stat EKG 12 Lead [EK] Stat 05/30/20 23:13 Blood Culture x2 Reflex Set [OM.PC] Stat 05/30/20 23:38 CULTURE BLOOD [BC] Stat CULTURE BLOOD [BC] Stat 05/31/20 00:23 Ang Chest [CT] Stat 05/31/20 00:30 Sodium Chloride 0.9% [Normal Saline] 500 ml IV .BOLUS - Assessment/Plan Last 24 Hours: My Active Orders 05/30/20 23:10 RT Aerosol Therapy [RC] ASDIRECTED Chest 2V [CR] Stat EKG 12 Lead [EK] Stat 05/30/20 23:13 Blood Culture x2 Reflex Set [OM.PC] Stat 05/30/20 23:38 CULTURE BLOOD [BC] Stat CULTURE BLOOD [BC] Stat 05/31/20 00:23 Ang Chest [CT] Stat 05/31/20 00:30 Sodium Chloride 0.9% [Normal Saline] 500 ml IV .BOLUS Plan: PLEASE SEE RN NOTE FOR PFSH
[2020-05-31 00:06] LABS: CHLORIDE,CL 106 mEq/L (98-106); SODIUM,NA 143 mEq/L (136-145)
[2020-05-31] MEDS ORDERED: Potassium Chloride 10 MEQ Tab.ER PO ONE (00:24)
[2020-05-31] MEDS ORDERED: Sodium Chloride 0.9% 500 ML IV SCH (00:30)
[2020-05-31] MEDS ORDERED: Iopamidol 755 Mg/ML 100 ML Bottle IVPUSH ONE (00:50)
[2020-05-31] MEDS ORDERED: rOPINIRole 1 MG Tab PO STA (01:06)
[2020-05-31] MEDS ORDERED: Take Home: Albuterol/Ipratropium 3.0-0.5 MG/3 ML Neb Soln, 4 Neb Pack NEB ONE (04:00)
[2020-05-31] MEDS ORDERED: Albuterol/Ipratropium 3.0-0.5 MG/3 ML Neb Soln ONE (04:00)
[2020-05-31 06:41] VITALS: BP 132/78; PULSE 95
[2020-05-31] MEDS ORDERED: Take Home: Albuterol/Ipratropium 3.0-0.5 MG/3 ML Neb Soln, 4 Neb Pack ONE (10:52)
== END 2020-05-31 11:30 | disposition home or self-care (01) ==
LOC: CC.ED 22:46
DX: J44.1 Chronic obstructive pulmonary disease with (acute) exacerbation (principal); J45.41 Moderate persistent asthma with (acute) exacerbation; R79.1 Abnormal coagulation profile; Z88.8 Allergy status to other drugs, medicaments and biological substances; Z79.899 Other long term (current) drug therapy; Z20.822 Contact with and (suspected) exposure to COVID-19
CPT/HCPCS: 36415; 71046; 71275; 80053; 82550; 83605; 83615; 83880; 84484; 85025; 85379; 85610; 86140; 87040; 93005; 94640; 96374; 99285; A9270; J2930; J7040; Q9967; U0002; 93010; 99284; J7620-GY